=== PATIENT | female | born 1935 | race Caucasian/White ===

== ENCOUNTER 2016-07-22 14:23 | Inpatient (IN) | payer OTHER, MEDICARE ==
[~2016-07-22] VITALS: Ht 158.8 cm; Wt 48.6 kg
[~2016-07-22 14:23] MED LIST: ASPIRIN EC81 M1; ATELVIA PO; BACTROBAN OINT.22 GM TOP; DULOXETINE HCL30 MG PO; ENALAPRIL MALEAT5 M1 PO; GABAPENTIN100 M2 PO; HYDREA500 M1; LASIX40 M1 PO; LEVOTHYROXINE75 MCG PO; LIPITOR20 M2; METOPROLOL TART25 M1 PO; PERCOCET 325 MG1 TA2 PO; TRAMADOL HCL50 M1 PO; TYLENOL EXTRA500 M2 PO; VASOTEC5 MG PO
--- NOTE | 2016-07-22 14:40 | ED UPPER/LOWER EXTREMITY COMPL ---
History of Present Illness General Chief Complaint: Lower Extremity Problems Stated Complaint: BILATERAL LEG SWELLING Source: patient, family Exam Limitations: no limitations Vital Signs & Intake/Output Vital Signs & Intake/Output Vital Signs Date Time Temp Pulse Resp B/P Pulse O2 O2 Flow FiO2 Ox Delivery Rate 07/27 0634 97.9 73 18 108/62 94 Room Air 07/26 2224 98.3 84 20 120/60 93 Room Air 07/26 1835 120/80 07/26 1527 97.7 79 18 100/60 92 07/26 0952 87 106/58 ED Intake and Output 07/27 0000 07/26 1200 Intake Total 620 120 Output Total 1100 100 Balance -480 20 Intake, IV 0 Intake, Oral 620 120 Number 0 0 Bowel Movements Output, Urine 1100 100 Patient 109 lb Weight Allergies Coded Allergies: codeine (Severe, SOB AND CHILLS 07/22/16) Reconcile Medications Acetaminophen (Tylenol Extra Strength) 500 MG TABLET 1 TAB PO BID PAIN ( Reported) Aspirin (Ecotrin) 81 MG ECT 1 TAB PO DAILY HEART (Reported) Atorvastatin Calcium (Lipitor) 20 MG TABLET 1 TAB PO AT BEDTIME CHOLESTEROL ( Reported) Augmentin (Augmentin 500-125 Tablet) 500 MG-125 MG TABLET 500 MG PO Q12 SKIN INFECTION STOP AFTER LAST DOSE ON 07/28/16. Duloxetine HCl 30 MG CAPSULE.DR 1 CAP PO QPM depression (Reported) Furosemide (Lasix) 40 MG TABLET 1 TAB PO DAILY FLUID RETENTION Gabapentin 100 MG CAPSULE 1 TAB PO Q8 PRN ANXIETY/INSOMNIA/PAIN PATIENT CAN GET 300MG ALTOGETHER AT BED TIME NEEDED. Hydroxyurea 500 MG CAPSULE 500 MG PO DAILY THROMB (Reported) Levothyroxine Sodium 75 MCG TABLET 1 TAB PO AD THYROID (Reported) Metoprolol Tartrate 25 MG TABLET 1 TAB PO BID BP (Reported) Risedronate Sodium (Atelvia) 35 MG TABLET.DR 1 TAB PO QWED OSTEOPOROSIS ( Reported) after food with at least 4 ounces of plain water Tramadol HCl 50 MG TABLET 1 TAB PO Q6P PRN PAIN (Reported) Triage Note: TRIAGE: PT TO ER WITH DAUGHTER, SENT TO ER FOR ADMISSION FROM WOUND CARE CENTER. STATES SHE NEEDS INPATIENT TREATMENT FOR WOUNDS ON BLE AND INTRACTABLE PAIN R/T SAME. DAUGHTER STATES THAT ANDREW TOOK A PICTURE OF THE WOUNDS AND WILL SEND THE PICTURE TO ANY MD WHO WANTS TO SEE IT SO THE DRESSINGS CAN STAY ON UNTIL TOMORROW. Triage Nurses Notes Reviewed? yes Onset: Gradual Duration: week(s): (SEVERAL) Timing: recent history Severity: severe Severity Numbers: 10 Pain/Injury Location: Bilateral: Leg. Associated Symptoms: swelling, DRAINAGE HPI: This is a very eusebio 81-year-old female with history of congestive heart failure, chronic lower extremity wounds who presents with her daughter from the wound care center, sent for admission for pain control, leg elevation. According to the daughter who is a nurse her chronic wounds have been getting worse over the last several weeks. There is malodorous discharge. No fevers this week but she had temperature of 100 last week. Positive nausea but no vomiting. She was seen there by Dr. Canada vascular who recommends IV pain control as well as leg elevation to help heal the wounds. Her issue with wounds started 1-1/2 years ago when she used 5-FU cream for a cancerous lesion on her leg. That developed into necrosis which then required bilateral vein closures. She has had issues on and off since then. With previous hospitalization and leg elevation the wounds were able to heal over and close. Patient complains of severe pain in both extremities as well as numbness and tingling. She states that her leg feels like it is "falling asleep. Dr. Uribe, who saw the wounds today, did not feel that they were acutely infected. And takes daily Lasix. 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 While she tries to be compliant with elevation she has a hard time keeping the legs up which has worsened the wounds of the last week. Past History Travel History Traveled to [place] past 21 day No Medical History Any Pertinent Medical History? see below for history Neurological: peripheral neuropathy, BRAIN TUMOR BRAIN CYST EENT: NONE Cardiovascular: hypertension, hyperlipidemia, systolic CHF, EDEMA Respiratory: NONE Gastrointestinal: NONE Hepatic: cholelithiasis Renal: NONE Musculoskeletal: osteoporosis, TORN L ROTATOR CUFF Psychiatric: NONE Endocrine: hypothyroidism Blood Disorders: THROMBOCYTOSIS Cancer(s): breast cancer, +CANCER CELLS TO LEG LAND TITLE EXAMINER/Reproductive: uterine/bladder prolapse History of MRSA: No History of VRE: No History of CDIFF: No Surgical History Surgical History: hysterectomy, lumpectomy, spinal fusion, BRAIN CYST REMOVAL 1996, BILATERAL VEIN CLOSURES 2015 Psychosocial History Who do you live with Patient/Self Services at Home None What is your primary language Faroese Tobacco Use: Quit >30 days ago ETOH Use: denies use Illicit Drug Use: denies illicit drug use Family History Family History, If Any: Relation not specified for: FH: breast cancer Hx Contributory? No Review of Systems Review of Systems Constitutional: Reports: fever (LAST WEEK). Denies: chills. EENTM: Reports: no symptoms. Respiratory: Reports: no symptoms. Cardiovascular: Reports: no symptoms. Gastrointestinal/Abdominal: Reports: nausea. Denies: abdominal pain, vomiting. Genitourinary: Reports: no symptoms. Musculoskeletal: Reports: no symptoms. Skin: Reports: see HPI (OPEN WOUNDS), erythema. Neurological/Psychological: Reports: no symptoms. Hematologic/Endocrine: Denies: bruising, bleeding, polyuria, polydipsia. Immunological: Reports: no symptoms. All Other Systems: Reviewed and Negative Physical Exam Physical Exam General Appearance: alert, awake, anxious, mild distress, thin Head: atraumatic, normal appearance Eyes: Bilateral: normal appearance, PERRL, EOMI. Ears, Nose, Throat: normal pharynx, normal ENT inspection, hearing grossly normal Neck: normal inspection, supple, full range of motion Cardiovascular/Respiratory: normal breath sounds, normal peripheral pulses Peripheral Pulses: 2+ radial (R), 2+ radial (L) Gastrointestinal: SOFT NONTENDER Leg Left: WRAPPED LEGS Leg Right: WRAPPED LEGS Hip Left: normal range of motion, normal inspection Hip Right: normal range of motion, normal inspection Knee Left: normal range of motion, normal inspection Knee Right: normal range of motion, normal inspection Foot Left: SWOLLEN/ERYTHEMATOUS TOES EXPOSED Foot Right: SWOLLEN/ERYTHEMATOUS TOES EXPOSED Skin: intact, normal color, warm/dry Progress Differential Diagnosis: EDEMA, CHRONIC LEG WOUNDS, INTRACTABLE PAIN Plan of Care: Orders Procedure Date/time Status TOTAL IRON BINDING CAPACITY 07/27 0600 Active FERRITIN 07/27 0600 Active SERUM IRON 07/27 0600 Active CBC WITHOUT DIFFERENTIAL 07/27 0600 Complete BASIC ELECTROLYTES PLUS BUN&CR 07/27 0600 Active VITAMIN B12 07/27 0600 Active MISSING MEDICATION FORM 07/27 UNK Active DC OXYGEN 07/26 1600 Complete Hemoccult 07/26 UNK Active Laboratory Tests 07/27/16 0634: Anion Gap 14, Estimated GFR 60, BUN/Creatinine Ratio 15.6, Iron 39, TIBC 303, Ferritin Pending, Vitamin B12 Pending, CBC w Diff NO MAN DIFF REQ, RBC 2.76 L, MCV 100.2 H, MCH 32.0 H, RDW 16.6 H, MPV 6.9 L, Gran % 50.6, Lymphocytes % 30.1, Monocytes % 17.0 H, Eosinophils % 1.6, Basophils % 0.7, Absolute Granulocytes 3.6, Absolute Lymphocytes 2.1, Absolute Monocytes 1.2 H, Absolute Eosinophils 0.1, Absolute Basophils 0, PUBS MCHC 31.9 L 07/26/16 1005: Sodium Cancelled, Potassium Cancelled, Chloride Cancelled, Carbon Dioxide Cancelled, Anion Gap Cancelled, BUN Cancelled, Creatinine Cancelled, BUN/ Creatinine Ratio Cancelled Initial ED EKG: NSR, LAD Prior EKG: unchanged Departure Departure Time of Disposition: 1618 Disposition: STILL A PATIENT Condition: Stable Clinical Impression Primary Impression: Lower extremity edema Secondary Impressions: Intractable pain Referrals: RIANNA BRAUN MD (PCP/Family) Departure Forms: Customer Survey General Discharge Information Prescriptions: Current Visit Scripts Augmentin (Augmentin 500-125 Tablet) 500 MG PO Q12 3 Days STOP AFTER LAST DOSE ON 07/28/16. Admission Note Spoke With: RIANNA BRAUN MD Documentation of Exam: Documentation of any treatments & extenuating circumstances including Concerns Regarding Discharge (functional status, medication knowledge or non-compliance, living conditions, etc.) that warrant an admission rather than observation: [IV PAIN CONTROL, LEG ELEVATION, WOUND CARE CONSULT, ID CONSULT, VASCULAR CONSULT, PT EVALUATION. PATIENT FAILING AT HOME, UNABLE TO PERFORM ADL'S SECONDARY TO INCREASING LEG PAIN/EDEMA. PER VASCULAR WILL REQUIRE STRICT LEG ELEVATION TO HEAL WOUNDS]
[2016-07-22 15:41] LABS: ABSOLUTE BASOPHIL COUNT 0 /CUMM (0.0-0.2); ABSOLUTE EOSINOPHIL COUNT 0 /CUMM (0.0-0.7); ABSOLUTE GRANULOCYTE CT 9.2 /CUMM (1.4-6.5); ABSOLUTE LYMPH COUNT 1.6 /CUMM (1.2-3.4); ABSOLUTE MONOCYTE COUNT 1.1 /CUMM (0.10-0.60); BASOPHIL % 0.3 % (0.0-2.0); EOSINOPHIL % 0.4 % (0-5); GRANULOCYTE % 76.8 % (42.2-75.2); HEMATOCRIT 25.4 % (37-47); MEAN CORPUSCULAR HGB 32.5 PG (27.0-31.0); MEAN CORPUSCULAR HGB CONC 32.8 G/DL (33.0-37.0); MEAN CORPUSCULAR VOLUME 99.3 FL (81.0-99.0); MEAN PLATELET VOLUME 7.1 FL (7.4-10.4); PLATELET COUNT 624 /CUMM (130-400); RBC DISTRIBUTION WIDTH 16.8 % (11.5-14.5); RED BLOOD CELL CT 2.56 /CUMM (4.20-5.40)
[2016-07-22 16:27] VITALS: BP 162/70
--- NOTE | 2016-07-22 16:58 | History & Physical ---
See Addendum HAILY NORWOOD MD 07/22/16 5636: General Information and HPI History of Present Illness: Ms. Bauer is a 81 year old lady with a PMH significant for skin cancer (unknown type) in BLEs, PAD, chronic venous insufficeincy, HTN, HLD, CHF, thrombocytosis, Graves disease, hypothyroidism, brain tumor, depression, and benzo abuse, sent in by Dr. Uribe from wound care center earlier today for worsening bilateral lower extremity edema and pain. Patient has been admitted twice in the past ( October and April 2016) for the recurrent BLE ulcer and edema which she had the diagnosis with skin cancer in both legs followed by valve closure and stent placement. Since being discharged from the last admission, patient's ulcers have been progressively worsening. This morning pain was so severe that she could not walk and almost fell. Currently patient reports severe pain in the medial aspects of both ankles. Pain is burning type, 10 out of 10, not well controlled despite. She denies any paresthesia. ROS grossly negative although patient reports a single episode of fever last week. Denies any chest pain, palpitations , shortness of breath, abdominal pain, nausea, vomiting, diarrhea, constipation, headache, dizziness/lightheadedness. PCP - Dr. Franklin Relationship Specialist - Dr. Biggs Wound care - Dr. Uribe Taping Foreman - Dr. Thomas Full code. Allergies/Medications Allergies: Coded Allergies: codeine (Severe, SOB AND CHILLS 07/22/16) Home Med list Acetaminophen (Tylenol Extra Strength) 500 MG TABLET 1 TAB PO BID PAIN ( Reported) Aspirin (Ecotrin) 81 MG ECT 1 TAB PO DAILY HEART (Reported) Atorvastatin Calcium (Lipitor) 20 MG TABLET 1 TAB PO AT BEDTIME CHOLESTEROL ( Reported) Duloxetine HCl 30 MG CAPSULE.DR 1 CAP PO QPM depression (Reported) Furosemide (Lasix) 40 MG TABLET 1 TAB PO DAILY FLUID RETENTION Gabapentin 100 MG CAPSULE 1 TAB PO Q8 PRN ANXIETY/INSOMNIA/PAIN PATIENT CAN GET 300MG ALTOGETHER AT BED TIME NEEDED. Hydroxyurea 500 MG CAPSULE 500 MG PO DAILY THROMB (Reported) Levothyroxine Sodium 75 MCG TABLET 1 TAB PO AD THYROID (Reported) Metoprolol Tartrate 25 MG TABLET 1 TAB PO BID BP (Reported) Risedronate Sodium (Atelvia) 35 MG TABLET.DR 1 TAB PO QWED OSTEOPOROSIS ( Reported) after food with at least 4 ounces of plain water Tramadol HCl 50 MG TABLET 1 TAB PO Q6P PRN PAIN (Reported) Past History Travel History Traveled to [place] past 21 day No Medical History Neurological: peripheral neuropathy, BRAIN TUMOR BRAIN CYST EENT: NONE Cardiovascular: hypertension, hyperlipidemia, systolic CHF, EDEMA Respiratory: NONE Gastrointestinal: NONE Hepatic: cholelithiasis Renal: NONE Musculoskeletal: osteoporosis, TORN L ROTATOR CUFF Psychiatric: NONE Endocrine: hypothyroidism Blood Disorders: THROMBOCYTOSIS Cancer(s): breast cancer, +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 unknown Power of Facilities Maintenance Supervisor/HCP? unknown Name of POA/HCP: daughter Joanna Functional Ability ADLs Needs Assist: dressing, eating, toileting, bathing. Ambulation: non-ambulatory IADLs Needs Assist: shopping, housework, finances, food prep, telephone, transportation, medication admin. Review of Systems Review of Systems Constitutional: Reports: see HPI. Exam & Diagnostic Data Last 24 Hrs of Vital Signs/I&O Vital Signs Date Time Temp Pulse Resp B/P Pulse O2 O2 Flow FiO2 Ox Delivery Rate 07/22 2153 101.5 07/22 2057 101.5 103 18 167/74 96 Nasal 2.0L Cannula 07/22 162 97.5 82 20 162/70 95 Room Air 07/22 1627 97.5 82 20 162/70 95 Room Air 07/22 1605 Room Air 07/22 1429 98.6 81 20 131/71 95 Room Air Intake & Output 07/22 1600 07/22 0800 07/22 0000 Intake Total Output Total Balance Patient 50.349 kg Weight Physical Exam General Appearance Alert, Oriented X3, Cooperative, No Acute Distress Skin BLEs wrapped with dressings, patient refusing undressing. HEENT Atraumatic, PERRLA, EOMI, Mucous Membr. moist/pink Neck Supple, No JVD, +2 Carotid Pulse wo Bruit, No LAD Cardiovascular Regular Rate, Normal S1, Normal S2, No Murmurs, Gallops, Rubs Lungs Clear to Auscultation, Normal Air Movement Abdomen Normal Bowel Sounds, Soft, No Tenderness Neurological Normal Speech, Sensation Intact, Cranial Nerves 3-12 NL Extremities No Clubbing, No Cyanosis, No Edema, Limited due to dressings Last 24 Hrs of Labs/Everardo: Laboratory Tests 07/22/162124: Lactic Acid 1.9 07/22/162115: Urine Color YEL, Urine Clarity CLEAR, Urine pH 6.0, Ur Specific [place] 1.020, Urine Protein NEG, Urine Ketones NEG, Urine Nitrite NEG, Urine Bilirubin NEG, Urine Urobilinogen 0.2, Ur Leukocyte Esterase NEG, Ur Microscopic EXAM NOT REQUIRED, Urine Hemoglobin NEG, Urine Glucose NEG 07/22/16 151: Lactic Acid 1.6 07/22/161509: Anion Gap 13, Estimated GFR 60, BUN/Creatinine Ratio 22.2, Glucose 98, Calcium 8.9, Total Bilirubin 0.4, AST 23, ALT 26, Alkaline Phosphatase 101, Troponin I < 0.01, Ped-N-Njikfbfyrmo Pept 141 H, Total Protein 7.0, Albumin 3.3 L, Globulin 3.7, Albumin/Globulin Ratio 0.9 L, CBC w Diff NO MAN DIFF REQ, RBC 2.56 L, MCV 99.3 H, MCH 32.5 H, RDW 16.8 H, MPV 7.1 L, Gran % 76.8 H, Lymphocytes % 13.5 L, Monocytes % 9.0, Eosinophils % 0.4, Basophils % 0.3, Absolute Granulocytes 9.2 H, Absolute Lymphocytes 1.6, Absolute Monocytes 1.1 H, Absolute Eosinophils 0, Absolute Basophils 0, PUBS MCHC 32.8 L 07/22/16 1443: Fsh-L-Kbjwkqwskdp Pept Cancelled Microbiology 07/22 2115 URINE ROUT: Urine Culture - RECD 07/22 152 BLOOD: Blood Culture - RECD 07/22 1509 BLOOD: Blood Culture - RECD Assessment/Plan Assessment: Ms. Bauer is a 81 year old lady with a PMH significant for skin cancer (unknown type) in BLEs, PAD, chronic venous insufficeincy, HTN, HLD, CHF, thrombocytosis, Graves disease, hypothyroidism, brain tumor, depression, and benzo abuse, presenting with worsening bilateral lower extremity edema and pain secondary to nonhealing ulcers of BLE. #Nonhealing ulcers of BLE: Has been following [facility] for a long time. Has had extensive venous and arterial testing per vascular surgery. Does not have significant PAD but has had venous disease which has been treated. Per vascular during last admission, patient's leg edema and ulceration was exacerbated by noncompliance with compression therapy and leg elevation. She has previously responded to treatment during hospitalization with improvement of her wounds. * Consult wound care * Continue leg elevation and compression from foot to knee. * Consider vascular consult * Adequate pain control with Morphine 2mg IV Q6P and Ultram 50 mg PO Q6P * Lasix 40mg IV daily * Consult market research senior project manager (Dr. Biggs) given the h/o CHF #Depression: Likely contributing to her noncompliance with therapy. * Continue home med Cybalta 30mg PO qPM * Consider psych consider * Avoid benzodiazepines in the setting of history of benzodiazepine abuse. #HTN: * Continue home med Lopressor 25mg PO BID * Lasix as above #Thrombosis * Continue home med hydroxyurea 500 mg PO QD #HLD * Continue home meds Lipitor 20mg PO qHS and aspirin 81 mg PO QD #Hypothyroidism: History of Grave's disease. * Continue home med levotyroxine 75 mcg PO QD Diet: Heart healthy DVT PPx: Lovenox 40 mg SQ QD CODE: FULL As Ranked By This Provider Problem List: 1. PAD (peripheral artery disease) 2. Anxiety 3. Leg pain, bilateral 4. Lower extremity edema 5. Intractable pain 6. Chronic pain 7. Non-healing ulcer of lower extremity 8. Peripheral vascular disease 9. Hyperlipidemia 10. Depression 11. DVT prophylaxis 12. Full code status 13. Hypothyroid 14. Hypertension Core Measures/Miscellaneous Acute Coronary Syndrome ACS Diagnosis: No Cerebrovascular Accident CVA/TIA Diagnosis: No Congestive Heart Failure CHF Diagnosis: No Venous Thromboembolism VTE Risk Factors: Age > 40 VTE Prophylaxis Ordered Inpt: Pharm- Lovenox No Mech VTE prophylaxis d/t: LE Edema No VTE Pharm Prophylaxis d/t: No contraindications VTE Diagnosis: No VTE Type: NONE VTE Confirmed by (Test): NONE Severe Sepsis Severe Sepsis Present: No Septic Shock Septic Shock Present: No Miscellaneous Documentation Attending Case Discussed With: RIANNA FRANKLIN MD Primary Care Physician: RIANNA FRANKLIN MD Patient sees these Specialists PCP Cardio Wound care Level of Patient Care: General Medicine TERI DUNBAR 07/22/16 1730: Resident Review Statement Resident Statement: examined this patient, discussed with internal control consultant, agreed with internal control consultant, discussed with family Other Findings: Patient is 81 year old female with PMH significant for skin cancer (unknown type ) in BLEs, PAD, chronic venous insufficeincy, HTN, HLD, CHF, thrombocytosis, Graves disease, hypothyroidism, brain tumor, depression, and benzo abuse, sent in by Dr. Uribe from wound care center earlier today for worsening bilateral lower extremity edema and pain. Vitals and labs as above Patient refused to opening of her lower extremety compression stocking Assessment and plan Patient is afebrile, with slight leukocytosis will repeat cbc in am patient reports that her leg wounds were weeping of purulent material in am, she refused to examination, will call wound consult in am Will place cardiology consult in am for heart failure will give her 40 IV lasix now and and repeat daily will continue patients home medication for anxiety, depression etc will continue metoprolol, gabapentin and hydroxyuria ( patient takes for thrombocytosis) DVT ppx sc lovenox Patient is FC
--- NOTE | 2016-07-22 20:41 | Admission Certification ---
Admission Certification Certification Statement - As attending physician, I certify that at the time of - admission, based on clinical presentation, severity of - symptoms, need for further diagnostic testing and - therapeutic interventions, and risk of adverse outcomes - without in-hospital treatment, in my clinical assessment, - this patient requires an acute hospital stay for a minimum - of two nights or longer. I have also considered psychsocial - factors such as support system, advanced age, financial - issues, cognitive issues, and failed out-patient treatments, - past re-admission history, safety of patient, and lack of - compliance as applicable. Specific rationale supporting this admission is: Leg edema leg pain leg ulcers needs IV diuretics pain management wound care and leg elevation.
--- NOTE | 2016-07-22 20:43 | PN- Att Addend ---
Attending Addendum Attending Brief Note 81 year old female with leg edema leg ulcers getting worse plus in a lot of pain follows with vascular and wound center not better worse needs care of legs diuresis leg elevation and pain management. Laboratory Tests 07/22 07/22 07/22 1510 1510 1443 Chemistry Sodium (137 - 145 mmol/L) 136 L Potassium (3.5 - 5.1 mmol/L) 4.7 Chloride (98 - 107 mmol/L) 93 L Carbon Dioxide (22 - 30 mmol/L) 29 Anion Gap (5 - 16) 13 BUN (7 - 17 mg/dL) 20 H Creatinine (0.5 - 1.0 mg/dL) 0.9 Estimated GFR (>60 ml/min) 60 BUN/Creatinine Ratio (7 - 25 %) 22.2 Glucose (65 - 99 mg/dL) 98 Lactic Acid (0.7 - 2.1 mmol/L) 1.6 Calcium (8.4 - 10.2 mg/dL) 8.9 Total Bilirubin (0.2 - 1.3 mg/dL) 0.4 AST (14 - 36 U/L) 23 ALT (9 - 52 U/L) 26 Alkaline Phosphatase (<127 U/L) 101 Troponin I (< 0.11 ng/ml) < 0.01 [id number] Pept (<125 pg/mL) 141 H Cancelled Total Protein (6.3 - 8.2 g/dL) 7.0 Albumin (3.5 - 5.0 g/dL) 3.3 L Globulin (1.9 - 4.2 gm/dL) 3.7 Albumin/Globulin Ratio (1.1 - 2.2 %) 0.9 L Hematology CBC w Diff NO MAN DIFF REQ WBC (4.8 - 10.8 /CUMM) 12.0 H RBC (4.20 - 5.40 /CUMM) 2.56 L Hgb (12.0 - 16.0 G/DL) 8.3 L Hct (37 - 47 %) 25.4 L MCV (81.0 - 99.0 FL) 99.3 H MCH (27.0 - 31.0 PG) 32.5 H RDW (11.5 - 14.5 %) 16.8 H Plt Count (130 - 400 /CUMM) 624 H MPV (7.4 - 10.4 FL) 7.1 L Gran % (42.2 - 75.2 %) 76.8 H Lymphocytes % (20.5 - 51.1 %) 13.5 L Monocytes % (1.7 - 9.3 %) 9.0 Eosinophils % (0 - 5 %) 0.4 Basophils % (0.0 - 2.0 %) 0.3 Absolute Granulocytes (1.4 - 6.5 /CUMM) 9.2 H Absolute Lymphocytes (1.2 - 3.4 /CUMM) 1.6 Absolute Monocytes (0.10 - 0.60 /CUMM) 1.1 H Absolute Eosinophils (0.0 - 0.7 /CUMM) 0 Absolute Basophils (0.0 - 0.2 /CUMM) 0 PUBS MCHC (33.0 - 37.0 G/DL) 32.8 L
--- NOTE | 2016-07-22 22:25 | RADIOLOGY REPORT ---
EXAMINATION: XR PORTABLE CHEST CLINICAL INFORMATION: Shortness of breath and fever. Assess for pneumonia. COMPARISON: Chest x-ray 04/16/2016. TECHNIQUE: An 85 degree semiupright PA portable view of the chest was obtained at 9:30 PM FINDINGS: The patient is rotated to the right. The lung fontaine are hypoexpanded. There is increased opacity at the bases, which may be consistent with bronchovascular crowding. No definite focal consolidation is demonstrated. The left CP angle and left lower lobe is difficult to assess as the patient's right hand overlies these regions. The cardiac silhouette is normal in size. The aortic arch is calcified and unfolded. The central pulmonary vasculature appears normal. There are multiple clips in the left axilla. A plate and 3 levels of screws are noted in the lower cervical spine, consistent with ACDF. IMPRESSION: 1. There are no acute cardiopulmonary findings. 2. The study is suboptimal due to technical factors as described above.
[2016-07-22 23:19] VITALS: BP 113/59
[2016-07-23 06:00] LABS: ABSOLUTE BASOPHIL COUNT 0 /CUMM (0.0-0.2); ABSOLUTE EOSINOPHIL COUNT 0 /CUMM (0.0-0.7); ABSOLUTE GRANULOCYTE CT 9.6 /CUMM (1.4-6.5); ABSOLUTE LYMPH COUNT 1.7 /CUMM (1.2-3.4); ABSOLUTE MONOCYTE COUNT 1.4 /CUMM (0.10-0.60); BASOPHIL % 0.3 % (0.0-2.0); EOSINOPHIL % 0.1 % (0-5); GRANULOCYTE % 75.2 % (42.2-75.2); HEMATOCRIT 28.3 % (37-47); MEAN CORPUSCULAR HGB 32.2 PG (27.0-31.0); MEAN CORPUSCULAR HGB CONC 32.8 G/DL (33.0-37.0); MEAN PLATELET VOLUME 6.9 FL (7.4-10.4); PLATELET COUNT 644 /CUMM (130-400); RBC DISTRIBUTION WIDTH 17.1 % (11.5-14.5); RED BLOOD CELL CT 2.89 /CUMM (4.20-5.40); WHITE BLOOD CELL COUNT 12.7 /CUMM (4.8-10.8)
[2016-07-23 06:07] VITALS: BP 112/56
--- NOTE | 2016-07-23 06:19 | PN- Housestaff ---
Subjective Follow-up For: Nonhealing ulcers in BLEs Subjective: Patient seen and examined at bedside. She was in excruciating pain this morning but pain improved significantly after 0.6mg of IV Dilaudid. No new complaints. Pending wound care's input. Review of Systems Constitutional: Reports: see HPI. Objective Last 24 Hrs of Vital Signs/I&O Vital Signs Date Time Temp Pulse Resp B/P Pulse O2 O2 Flow FiO2 Ox Delivery Rate 07/23 1532 97.8 80 18 120/58 98 07/23 0912 76 135/80 07/23 0724 98.9 84 18 112/56 96 07/23 0607 98.9 84 20 112/56 98 Nasal 2.0L Cannula 07/23 0215 100.0 07/23 0215 100.0 07/23 0116 100.9 07/23 0000 101.4 07/22 2319 101.8 96 18 113/59 96 Nasal 2.0L Cannula 07/22 2253 101.8 07/22 2251 101.8 96 18 113/59 96 Nasal 2.0L Cannula 07/22 2239 Nasal 2.0L Cannula 07/22 2215 101.5 103 18 167/74 07/22 2153 101.5 07/22 2058 101.5 103 18 167/74 96 Nasal 2.0L Cannula 07/22 1627 97.5 82 20 162/70 95 Room Air 07/22 1627 97.5 82 20 162/70 95 Room Air Intake & Output 07/23 1600 07/23 0800 07/23 0000 Intake Total 350 Output Total 600 1900 Balance -250 -1900 Intake, IV 300 Intake, Oral 50 Output, Urine 600 1900 Physical Exam General Appearance: Alert, Oriented X3, Cooperative, Mild Distress Other Physical Findings: Skin BLEs wrapped with dressings, patient refusing undressing. HEENT Atraumatic, PERRLA, EOMI, Mucous Membr. moist/pink Neck Supple, No JVD, +2 Carotid Pulse wo Bruit, No LAD Cardiovascular Regular Rate, Normal S1, Normal S2, Systolic murmur (Grade II) at aortic Lungs Clear to Auscultation, Normal Air Movement Abdomen Normal Bowel Sounds, Soft, No Tenderness Neurological Normal Speech, Sensation Intact, Cranial Nerves 3-12 NL Extremities No Clubbing, No Cyanosis, No Edema, Limited due to dressings Current Medications: Current Medications Sig/Amrita Start time Last Medication Dose Route Stop Time Status Admin Acetaminophen 0 .STK-MED ONE 07/23 0116 DC IV Acetaminophen 1,000 MG ONCE ONE 07/23 0030 DC 07/23 N/A 1 UNIT IV 07/23 0044 0116 Acetaminophen 0 .STK-MED ONE 07/22 2151 DC CA Acetaminophen 650 MG ONCE ONE 07/22 2145 DC 07/22 CA 07/22 2145 215 Acetaminophen 0 .STK-MED ONE 07/223 DC PO Aspirin 81 MG DAILY 07/23 1000 AC 07/23 PO 0912 Atorvastatin Calcium 20 MG AT BEDTIME 07/22 2200 AC PO Dextrose/Sodium 1,000 ML Q13H 07/23 0100 DC 07/23 Chloride IV 07/23 1359 0126 Duloxetine HCl 30 MG QPM 07/22 2200 AC PO Enoxaparin Sodium 40 MG DAILY 07/23 1000 AC 07/23 SC 0912 Furosemide 40 MG DAILY 07/23 1000 CAN IV Furosemide 0 .STK-MED ONE 07/23 0613 DC IV Furosemide 0 .STK-MED ONE 07/22 2024 DC IV Furosemide 40 MG ONCE ONE 07/22 1745 DC 07/22 IV 07/22 1746 1845 Gabapentin 100 MG Q8 PRN 07/22 1815 AC PO Hydromorphone HCl 0 .STK-MED ONE 07/23 0918 DC .ROUTE Hydromorphone HCl 0.6 MG ONCE ONE 07/23 0830 DC 07/23 IV 07/23 0831 0912 Hydromorphone HCl 1 MG ONCE ONE 07/22 1815 DC 07/22 IV 07/22 1816 1812 Hydromorphone HCl 0 .STK-MED ONE 07/22 1806 DC .ROUTE Hydroxyurea 500 MG DAILY 07/22 1811 AC 07/23 PO 0912 Levothyroxine Sodium 0.075 MG DAILY AC 07/23 0700 AC 07/23 PO 0641 Metoprolol Tartrate 25 MG BID 07/22 2200 AC 07/23 PO 0912 Morphine Sulfate 2 MG Q6P PRN 07/22 1900 AC 07/23 IV 1533 Morphine Sulfate 2 MG ONCE ONE 07/22 1630 DC 07/22 IV 07/22 1631 1631 Morphine Sulfate 0 .STK-MED ONE 07/22 1630 DC .ROUTE Tramadol HCl 0 .STK-MED ONE 07/23 0735 DC PO Tramadol HCl 50 MG Q6P PRN 07/22 1815 AC 07/23 PO 0835 Vancomycin HCl 1,000 MG DAILY 07/22 2229 07/23 Dextrose/Water 250 ML IV 0912 Last 24 Hrs of Lab/Everardo Results Last 24 Hrs of Labs/Mics: Laboratory Tests 07/23/16 0527: Lactic Acid 1.6, CBC w Diff NO MAN DIFF REQ, RBC 2.89 L, MCV 98.0, MCH 32.2 H, RDW 17.1 H, MPV 6.9 L, Gran % 75.2, Lymphocytes % 13.6 L, Monocytes % 10.8 H , Eosinophils % 0.1, Basophils % 0.3, Absolute Granulocytes 9.6 H, Absolute Lymphocytes 1.7, Absolute Monocytes 1.4 H, Absolute Eosinophils 0, Absolute Basophils 0, PUBS MCHC 32.8 L 07/23/16 0125: Lactic Acid 1.3 07/22/162124: Lactic Acid 1.9 07/22/162115: Urine Color YEL, Urine Clarity CLEAR, Urine pH 6.0, Ur Specific [place] 1.020, Urine Protein NEG, Urine Ketones NEG, Urine Nitrite NEG, Urine Bilirubin NEG, Urine Urobilinogen 0.2, Ur Leukocyte Esterase NEG, Ur Microscopic EXAM NOT REQUIRED, Urine Hemoglobin NEG, Urine Glucose NEG Microbiology 07/22 2115 URINE ROUT: Urine Culture - RES Assessment/Plan Assessment: Ms. Bauer is a 81 year old lady with a PMH significant for skin cancer (unknown type) in BLEs, PAD, chronic venous insufficeincy, HTN, HLD, CHF, thrombocytosis, Graves disease, hypothyroidism, brain tumor, depression, and benzo abuse, presenting with worsening bilateral lower extremity edema and pain secondary to nonhealing ulcers of BLE. #Nonhealing ulcers of BLE: [facility]. Has had extensive venous and arterial testing per vascular surgery. Does not have significant PAD but has had venous disease which has been treated. Per vascular during last admission, patient's leg edema and ulceration was exacerbated by noncompliance with compression therapy and leg elevation. She has previously responded to treatment during hospitalization with improvement of her wounds. * Wound care consulted, follow recs * Continue leg elevation and compression from foot to knee. * Vascular consulted, follow recs * Continue local wound care with Adaptic, Aquacel and Kerlix and Kelton daily; avoid Xeroform as per vascular rec. * Adequate pain control with Morphine 2mg IV Q6P and Ultram 50 mg PO Q6P * May give 0.4-0.6mg IV Dilaudid one time dose for excruciating pain * Cont Lasix 40mg IV daily * Store Protection Specialist (Dr. Biggs) consulted, follow recs #Depression: Likely contributing to her noncompliance with therapy. * Continue home med Cybalta 30mg PO qPM * Consider psych consider * Avoid benzodiazepines in the setting of history of benzodiazepine abuse. #HTN: * Continue home med Lopressor 25mg PO BID * Lasix as above #Thrombosis * Continue home med hydroxyurea 500 mg PO QD #HLD * Continue home meds Lipitor 20mg PO qHS and aspirin 81 mg PO QD #Hypothyroidism: History of Grave's disease. * Continue home med levotyroxine 75 mcg PO QD Diet: Heart healthy DVT PPx: Lovenox 40 mg SQ QD CODE: FULL Problem List: 1. Non-healing ulcer of lower extremity 2. PAD (peripheral artery disease) 3. Aortic stenosis, mild 4. Anxiety 5. Intractable pain 6. Lower extremity edema Pain Ratin Pain Location: BLEs Pain Goal: Pain 4 or less Pain Plan: Moderate pathway Tomorrow's Labs & Rationales: CBC to monitor for infection (leukocytosis)
--- NOTE | 2016-07-23 09:46 | Cons- Vascular Surgery ---
General Information and HPI Consulting Request Date of Consult: 07/22/16 Requested By: RIANNA BRAUN MD Reason for Consult: Bilateral lower extremity edema and excoriated skin Source of Information: patient, family Exam Limitations: no limitations History of Present Illness: 81-year-old female with significant past medical history who presented to the wound Center today with bilateral lower extremity edema and extensive excoriation of the foot. This has been ongoing and increasing in severity and duration. This has occurred in the past. Patient spends long hours sitting in a chair at home and sleeps in the chair. This resulted in extensive dependent edema which breaks down her skin. Her daughter Joanna has been helpful but the patient continues to be noncompliant. When she is admitted to the hospital she elevates her legs and her wounds heal. This has occurred on several occasions. She now presents to the wound Center and [place] with worsening pain and dependent edema. She denies claudication or rest pain. She previously has had an angiogram which revealed no significant PAD. Allergies/Medications Allergies: Coded Allergies: codeine (Severe, SOB AND CHILLS 07/22/16) Home Med List: Acetaminophen (Tylenol Extra Strength) 500 MG TABLET 1 TAB PO BID PAIN ( Reported) Aspirin (Ecotrin) 81 MG ECT 1 TAB PO DAILY HEART (Reported) Atorvastatin Calcium (Lipitor) 20 MG TABLET 1 TAB PO AT BEDTIME CHOLESTEROL ( Reported) Duloxetine HCl 30 MG CAPSULE.DR 1 CAP PO QPM depression (Reported) Furosemide (Lasix) 40 MG TABLET 1 TAB PO DAILY FLUID RETENTION Gabapentin 100 MG CAPSULE 1 TAB PO Q8 PRN ANXIETY/INSOMNIA/PAIN PATIENT CAN GET 300MG ALTOGETHER AT BED TIME NEEDED. Hydroxyurea 500 MG CAPSULE 500 MG PO DAILY THROMB (Reported) Levothyroxine Sodium 75 MCG TABLET 1 TAB PO AD THYROID (Reported) Metoprolol Tartrate 25 MG TABLET 1 TAB PO BID BP (Reported) Risedronate Sodium (Atelvia) 35 MG TABLET.DR 1 TAB PO QWED OSTEOPOROSIS ( Reported) after food with at least 4 ounces of plain water Tramadol HCl 50 MG TABLET 1 TAB PO Q6P PRN PAIN (Reported) Current Medications: Current Medications Sig/Amrita Start time Last Medication Dose Route Stop Time Status Admin Acetaminophen 0 .STK-MED ONE 07/23 115 DC IV Acetaminophen 1,000 MG ONCE ONE 07/23 0030 DC 07/23 N/A 1 UNIT IV 07/23 0044 0116 Acetaminophen 0 .STK-MED ONE 07/22 2151 DC DC Acetaminophen 650 MG ONCE ONE 07/22 2145 DC 07/22 DC 07/22 2145 215 Acetaminophen 0 .STK-MED ONE 07/223 DC PO Aspirin 81 MG DAILY 07/23 1000 AC 07/23 PO 0912 Atorvastatin Calcium 20 MG AT BEDTIME 07/22 2200 AC PO Dextrose/Sodium 1,000 ML Q13H 07/23 0100 AC 07/23 Chloride IV 07/23 1359 0126 Duloxetine HCl 30 MG QPM 07/22 2200 AC PO Enoxaparin Sodium 40 MG DAILY 07/23 1000 AC 07/23 SC 0912 Furosemide 40 MG DAILY 07/23 1000 CAN IV Furosemide 0 .STK-MED ONE 07/23 0613 DC IV Furosemide 0 .STK-MED ONE 07/22 2024 DC IV Furosemide 40 MG ONCE ONE 07/22 1745 DC 07/22 IV 07/22 1746 1845 Gabapentin 100 MG Q8 PRN 07/22 1815 AC PO Hydromorphone HCl 0 .STK-MED ONE 07/23 0918 DC .ROUTE Hydromorphone HCl 0.6 MG ONCE ONE 07/23 0830 DC 07/23 IV 07/23 0831 0912 Hydromorphone HCl 1 MG ONCE ONE 07/22 1815 DC 07/22 IV 07/22 1816 1812 Hydromorphone HCl 0 .STK-MED ONE 07/22 1806 DC .ROUTE Hydroxyurea 500 MG DAILY 07/22 1811 AC 07/23 PO 0912 Levothyroxine Sodium 0.075 MG DAILY AC 07/23 0700 AC 07/23 PO 0641 Metoprolol Tartrate 25 MG BID 07/22 2200 AC 07/23 PO 0912 Morphine Sulfate 2 MG Q6P PRN 07/22 1900 AC IV Morphine Sulfate 2 MG ONCE ONE 07/22 1630 DC 07/22 IV 07/22 1631 1631 Morphine Sulfate 0 .STK-MED ONE 07/22 1630 DC .ROUTE Morphine Sulfate 0 .STK-MED ONE 07/22 1511 DC .ROUTE Morphine Sulfate 2 MG ONCE ONE 07/22 1445 DC 07/22 IV 07/22 1446 1515 Ondansetron HCl 0 .STK-MED ONE 07/22 1512 DC .ROUTE Ondansetron HCl 4 MG ONCE ONE 07/22 1445 DC 07/22 IV 07/22 1446 1515 Tramadol HCl 0 .STK-MED ONE 07/23 0835 DC PO Tramadol HCl 50 MG Q6P PRN 07/22 1815 AC 07/23 PO 0835 Vancomycin HCl 1,000 MG DAILY 07/22 2230 AC 07/23 Dextrose/Water 250 ML IV 0912 Past History Medical History Neurological: peripheral neuropathy, BRAIN TUMOR BRAIN CYST EENT: NONE Cardiovascular: hypertension, hyperlipidemia, systolic CHF, EDEMA Respiratory: NONE Gastrointestinal: NONE Hepatic: cholelithiasis Renal: NONE Musculoskeletal: osteoporosis, TORN L ROTATOR CUFF Psychiatric: NONE Endocrine: hypothyroidism Blood Disorders: THROMBOCYTOSIS Cancer(s): breast cancer, +CANCER CELLS TO LEG METAL FLOW COORDINATOR/Reproductive: uterine/bladder prolapse Surgical History Pertinent Surgical History: hysterectomy, lumpectomy, spinal fusion, BRAIN CYST REMOVAL 1997 BILATERAL VEIN CLOSURES 2015 Family History Relations & Conditions If Any: Relation not specified for: FH: breast cancer Psychosocial History Services at Home: None Primary Language: Wolof Smoking Status: Never Smoked ETOH Use: denies use Illicit Drug Use: denies illicit drug use Living Will? unknown Power of Training Associate/HCP? unknown Name of POA/HCP: daughter Joanna Functional Ability ADLs Needs Assist: dressing, eating, toileting, bathing. Ambulation: non-ambulatory IADLs Needs Assist: shopping, housework, finances, food prep, telephone, transportation, medication admin. Review of Systems Review of Systems: Complains of bilateral lower extremity pain and edema. Complains of burning in the lower extremity. Exam & Diagnostic Data Vital Signs and I&O Vital Signs Date Time Temp Pulse Resp B/P Pulse O2 O2 Flow FiO2 Ox Delivery Rate 07/23 09 76 135/80 07/23 0724 98.9 84 18 112/56 96 07/23 0607 98.9 84 20 112/56 98 Nasal 2.0L Cannula 07/23 0215 100.0 07/23 0215 100.0 07/23 0116 100.9 07/23 0000 101.4 07/22 2319 101.8 96 18 113/59 96 Nasal 2.0L Cannula 07/22 2252 101.8 07/22 225 101.8 96 18 113/59 96 Nasal 2.0L Cannula 07/22 2238 Nasal 2.0L Cannula 07/22 2215 101.5 103 18 167/74 07/22 2153 101.5 07/22 2057 101.5 103 18 167/74 96 Nasal 2.0L Cannula 07/22 1627 97.5 82 20 162/70 95 Room Air 07/22 1627 97.5 82 20 162/70 95 Room Air 07/22 1605 Room Air 07/22 1429 98.6 81 20 131/71 95 Room Air Intake & Output 07/23 1600 07/23 0800 07/23 0000 07/22 1600 07/22 0807/22 0000 Intake Total Output Total 1900 Balance -1900 Output, Urine 1900 Patient 111 lb Weight Physical Exam: Physical exam reveals bilateral lower extremities are perfused with good cap refill. Lower leg with excoriated skin worse at the toe level. Heavy fibrinous exudate. Weeping skin. Assessment/Plan Assessment/Plan 81-year-old female with venous insufficiency and multiple medical problems. 1.) Would recommend elevation and compression- this typically heal these wounds 2.) DVT prophylaxis 3.) Continue local wound care with Adaptic, Aquacel and Kerlix and Kelton daily 4.) Xeroform should not be used as the wounds are already moist 5.) Diuretics as needed and per primary care Consult Acknowledgment - Thank you for your consult request.
--- NOTE | 2016-07-23 12:56 | Cons- Cardiology ---
General Information and HPI Consulting Request Date of Consult: 07/23/16 Requested By: RIANNA BRAUN MD Reason for Consult: Lower extremity edema with nonhealing ulcers Source of Information: patient, old records History of Present Illness: The patient is an 81-year-old female who is well-known to me. Her past history is remarkable for hypertension, hyperlipidemia, lower extremity edema related to venous insufficiency, thrombocytosis, nonhealing lower extremity ulcers, hypothyroidism, etc. The patient was apparently sent to the emergency room from the wound care center by Dr. Uribe for worsening lower extremity edema and discomfort with nonhealing ulcers. The patient has been going to the wound care center and also the heart failure clinic for intermittent IV Lasix. Her last several visits to the CHF clinic have shown that her weight has been stable. The patient has been complaining of worsening lower extremity discomfort. She is quite despondent about the lower extremity issues. Allergies/Medications Allergies: Coded Allergies: codeine (Severe, SOB AND CHILLS 07/22/16) Home Med List: Acetaminophen (Tylenol Extra Strength) 500 MG TABLET 1 TAB PO BID PAIN ( Reported) Aspirin (Ecotrin) 81 MG ECT 1 TAB PO DAILY HEART (Reported) Atorvastatin Calcium (Lipitor) 20 MG TABLET 1 TAB PO AT BEDTIME CHOLESTEROL ( Reported) Duloxetine HCl 30 MG CAPSULE.DR 1 CAP PO QPM depression (Reported) Furosemide (Lasix) 40 MG TABLET 1 TAB PO DAILY FLUID RETENTION Gabapentin 100 MG CAPSULE 1 TAB PO Q8 PRN ANXIETY/INSOMNIA/PAIN PATIENT CAN GET 300MG ALTOGETHER AT BED TIME NEEDED. Hydroxyurea 500 MG CAPSULE 500 MG PO DAILY THROMB (Reported) Levothyroxine Sodium 75 MCG TABLET 1 TAB PO AD THYROID (Reported) Metoprolol Tartrate 25 MG TABLET 1 TAB PO BID BP (Reported) Risedronate Sodium (Atelvia) 35 MG TABLET.DR 1 TAB PO QWED OSTEOPOROSIS ( Reported) after food with at least 4 ounces of plain water Tramadol HCl 50 MG TABLET 1 TAB PO Q6P PRN PAIN (Reported) Current Medications: Current Medications Sig/Amrita Start time Last Medication Dose Route Stop Time Status Admin Acetaminophen 0 .STK-MED ONE 07/236 DC IV Acetaminophen 1,000 MG ONCE ONE 07/23 0030 DC 07/23 N/A 1 UNIT IV 07/236 Acetaminophen 0 .STK-MED ONE 07/22 2151 DC OH Acetaminophen 650 MG ONCE ONE 07/22 2145 DC 07/22 OH 07/22 2146 2153 Acetaminophen 0 .STK-MED ONE 07/22 2123 DC PO Aspirin 81 MG DAILY 07/23 1000 AC 07/23 PO 0912 Atorvastatin Calcium 20 MG AT BEDTIME 07/22 2200 AC PO Dextrose/Sodium 1,000 ML Q13H 07/23 0100 AC 07/23 Chloride IV 07/23 1359 0126 Duloxetine HCl 30 MG QPM 07/22 220 AC PO Enoxaparin Sodium 40 MG DAILY 07/23 1000 AC 07/23 SC 0912 Furosemide 40 MG DAILY 07/23 1000 CAN IV Furosemide 0 .STK-MED ONE 07/23 0613 DC IV Furosemide 0 .STK-MED ONE 07/22 2024 DC IV Furosemide 40 MG ONCE ONE 07/22 1745 DC 07/22 IV 07/22 1746 1845 Gabapentin 100 MG Q8 PRN 07/22 1815 AC PO Hydromorphone HCl 0 .STK-MED ONE 07/23 0918 DC .ROUTE Hydromorphone HCl 0.6 MG ONCE ONE 07/23 0830 DC 07/23 IV 07/23 0831 0912 Hydromorphone HCl 1 MG ONCE ONE 07/22 1815 DC 07/22 IV 07/22 1816 1812 Hydromorphone HCl 0 .STK-MED ONE 07/22 1806 DC .ROUTE Hydroxyurea 500 MG DAILY 07/22 1811 AC 07/23 PO 0912 Levothyroxine Sodium 0.075 MG DAILY AC 07/23 0700 AC 07/23 PO 0641 Metoprolol Tartrate 25 MG BID 07/22 2200 AC 07/23 PO 0912 Morphine Sulfate 2 MG Q6P PRN 07/22 1900 AC IV Morphine Sulfate 2 MG ONCE ONE 07/22 1630 DC 07/22 IV 07/22 1631 1631 Morphine Sulfate 0 .STK-MED ONE 07/22 1630 DC .ROUTE Morphine Sulfate 0 .STK-MED ONE 07/22 1511 DC .ROUTE Morphine Sulfate 2 MG ONCE ONE 07/22 1445 DC 07/22 IV 07/22 1446 1515 Ondansetron HCl 0 .STK-MED ONE 07/22 1512 DC .ROUTE Ondansetron HCl 4 MG ONCE ONE 07/22 1445 DC 07/22 IV 07/22 1446 1515 Tramadol HCl 0 .STK-MED ONE 07/23 0835 DC PO Tramadol HCl 50 MG Q6P PRN 07/22 1815 AC 07/23 PO 0835 Vancomycin HCl 1,000 MG DAILY 07/22 2230 AC 07/23 Dextrose/Water 250 ML IV 0912 Past History Travel History Traveled to [place] past 21 day No Medical History Neurological: peripheral neuropathy, BRAIN TUMOR BRAIN CYST EENT: NONE Cardiovascular: hypertension, hyperlipidemia, systolic CHF, EDEMA Respiratory: NONE Gastrointestinal: NONE Hepatic: cholelithiasis Renal: NONE Musculoskeletal: osteoporosis, TORN L ROTATOR CUFF Psychiatric: NONE Endocrine: hypothyroidism Blood Disorders: THROMBOCYTOSIS Cancer(s): breast cancer, +CANCER CELLS TO LEG SPECIAL EDUCATION AIDE/Reproductive: uterine/bladder prolapse Surgical History Surgical History: hysterectomy, lumpectomy, spinal fusion, BRAIN CYST REMOVAL 1997 BILATERAL VEIN CLOSURES 2015 Family History Relations & Conditions If Any: Relation not specified for: FH: breast cancer Psychosocial History Services at Home: None Primary Language: Nepali Smoking Status: Never Smoked ETOH Use: denies use Illicit Drug Use: denies illicit drug use Living Will? unknown Power of Industrial Sales Engineer/HCP? unknown Name of POA/HCP: daughter Joanna Functional Ability ADLs Needs Assist: dressing, eating, toileting, bathing. Ambulation: non-ambulatory IADLs Needs Assist: shopping, housework, finances, food prep, telephone, transportation, medication admin. Exam & Diagnostic Data Vital Signs and I&O Vital Signs Date Time Temp Pulse Resp B/P Pulse O2 O2 Flow FiO2 Ox Delivery Rate 07/23 0912 76 135/80 07/23 0724 98.9 84 18 112/56 96 07/23 0607 98.9 84 20 112/56 98 Nasal 2.0L Cannula 07/23 0215 100.0 07/23 0215 100.0 07/23 0116 100.9 07/23 0000 101.4 07/22 2319 101.8 96 18 113/59 96 Nasal 2.0L Cannula 07/22 2252 101.8 07/22 2250 101.8 96 18 113/59 96 Nasal 2.0L Cannula 07/22 2238 Nasal 2.0L Cannula 07/22 2214 101.5 103 18 167/74 07/22 2152 101.5 07/22 2057 101.5 103 18 167/74 96 Nasal 2.0L Cannula 07/22 1627 97.5 82 20 162/70 95 Room Air 07/22 1627 97.5 82 20 162/70 95 Room Air 07/22 1605 Room Air 07/22 1429 98.6 81 20 131/71 95 Room Air Intake & Output 07/23 1600 07/23 0800 07/23 0000 07/22 1600 07/22 0800 07/22 0000 Intake Total 300 Output Total 1900 Balance 300 -1900 Intake, IV 300 Output, Urine 1900 Patient 111 lb Weight Physical Exam: General Appearance Alert, Oriented X3, Cooperative, No Acute Distress Skin BLEs wrapped with dressings HEENT Atraumatic, PERRLA, EOMI, Mucous Membr. moist/pink Neck Supple, No JVD, +2 Carotid Pulse wo Bruit Cardiovascular Regular Rate, Normal S1, Normal S2, 1 to 2/6 systolic murmur left sternal border Lungs Clear to Auscultation and percussion bilaterally Abdomen Normal Bowel Sounds, Soft, No Tenderness Neurological Normal Speech, Sensation Intact, Cranial Nerves 3-12 NL Extremities No Clubbing, No Cyanosis, mild edema greater on the right side, examination Limited due to dressings in place Labs/Everardo Results: Laboratory Tests 07/23 07/23 07/22 0527 0125 2125 Chemistry Lactic Acid (0.7 - 2.1 mmol/L) 1.6 1.3 1.9 Hematology CBC w Diff NO MAN DIFF REQ WBC (4.8 - 10.8 /CUMM) 12.7 H RBC (4.20 - 5.40 /CUMM) 2.89 L Hgb (12.0 - 16.0 G/DL) 9.3 L Hct (37 - 47 %) 28.3 L MCV (81.0 - 99.0 FL) 98.0 MCH (27.0 - 31.0 PG) 32.2 H RDW (11.5 - 14.5 %) 17.1 H Plt Count (130 - 400 /CUMM) 644 H MPV (7.4 - 10.4 FL) 6.9 L Gran % (42.2 - 75.2 %) 75.2 Lymphocytes % (20.5 - 51.1 %) 13.6 L Monocytes % (1.7 - 9.3 %) 10.8 H Eosinophils % (0 - 5 %) 0.1 Basophils % (0.0 - 2.0 %) 0.3 Absolute Granulocytes (1.4 - 6.5 /CUMM) 9.6 H Absolute Lymphocytes (1.2 - 3.4 /CUMM) 1.7 Absolute Monocytes (0.10 - 0.60 /CUMM) 1.4 H Absolute Eosinophils (0.0 - 0.7 /CUMM) 0 Absolute Basophils (0.0 - 0.2 /CUMM) 0 PUBS MCHC (33.0 - 37.0 G/DL) 32.8 L 07/22 07/22 2116 1510 Chemistry Lactic Acid (0.7 - 2.1 mmol/L) 1.6 Urines Urine Color (YEL,AMB,STR) YEL Urine Clarity (CLEAR) CLEAR Urine pH (5.0 - 8.0) 6.0 Ur Specific [place] (1.001 - 1.035) 1.020 Urine Protein (NEG,<30 MG/DL) NEG Urine Ketones (NEG) NEG Urine Nitrite (NEG) NEG Urine Bilirubin (NEG) NEG Urine Urobilinogen (0.1 - 1.0 EU/dl) 0.2 Ur Leukocyte Esterase (NEG) NEG Ur Microscopic EXAM NOT REQUIRED Urine Hemoglobin (NEG) NEG Urine Glucose (N MG/DL) NEG 07/22 07/22 1510 1443 Chemistry Sodium (137 - 145 mmol/L) 136 L Potassium (3.5 - 5.1 mmol/L) 4.7 Chloride (98 - 107 mmol/L) 93 L Carbon Dioxide (22 - 30 mmol/L) 29 Anion Gap (5 - 16) 13 BUN (7 - 17 mg/dL) 20 H Creatinine (0.5 - 1.0 mg/dL) 0.9 Estimated GFR (>60 ml/min) 60 BUN/Creatinine Ratio (7 - 25 %) 22.2 Glucose (65 - 99 mg/dL) 98 Calcium (8.4 - 10.2 mg/dL) 8.9 Total Bilirubin (0.2 - 1.3 mg/dL) 0.4 AST (14 - 36 U/L) 23 ALT (9 - 52 U/L) 26 Alkaline Phosphatase (<127 U/L) 101 Troponin I (< 0.11 ng/ml) < 0.01 [id number] Pept (<125 pg/mL) 141 H Cancelled Total Protein (6.3 - 8.2 g/dL) 7.0 Albumin (3.5 - 5.0 g/dL) 3.3 L Globulin (1.9 - 4.2 gm/dL) 3.7 Albumin/Globulin Ratio (1.1 - 2.2 %) 0.9 L Hematology CBC w Diff NO MAN DIFF REQ WBC (4.8 - 10.8 /CUMM) 12.0 H RBC (4.20 - 5.40 /CUMM) 2.56 L Hgb (12.0 - 16.0 G/DL) 8.3 L Hct (37 - 47 %) 25.4 L MCV (81.0 - 99.0 FL) 99.3 H MCH (27.0 - 31.0 PG) 32.5 H RDW (11.5 - 14.5 %) 16.8 H Plt Count (130 - 400 /CUMM) 624 H MPV (7.4 - 10.4 FL) 7.1 L Gran % (42.2 - 75.2 %) 76.8 H Lymphocytes % (20.5 - 51.1 %) 13.5 L Monocytes % (1.7 - 9.3 %) 9.0 Eosinophils % (0 - 5 %) 0.4 Basophils % (0.0 - 2.0 %) 0.3 Absolute Granulocytes (1.4 - 6.5 /CUMM) 9.2 H Absolute Lymphocytes (1.2 - 3.4 /CUMM) 1.6 Absolute Monocytes (0.10 - 0.60 /CUMM) 1.1 H Absolute Eosinophils (0.0 - 0.7 /CUMM) 0 Absolute Basophils (0.0 - 0.2 /CUMM) 0 PUBS MCHC (33.0 - 37.0 G/DL) 32.8 L Assessment/Plan Assessment/Plan Assessment: 1. Lower extremity edema related to venous insufficiency with nonhealing ulcers. 2. Chronic venous insufficiency, status post venous closure procedures 3. Chronic pain syndrome 4. Nonobstructive peripheral arterial disease-the patient had bilateral lower extremity arterial angiography performed in December 2015 which showed no focal obstructive arterial disease which would require intervention. 5. Hyperlipidemia 6. Hypertension 7. Hypothyroidism Recommendations: -Continue current medications -IV Lasix diuresis with once daily IV Lasix while in the hospital. Continue to monitor her intakes, outputs, and daily weights. -Follow-up labs in 24 hours -Vascular surgery/podiatry input as needed. -Continue conservative measures such as leg elevation, etc. -Full cultures pending Consult Acknowledgment - Thank you for your consult request.
[2016-07-23 15:32] VITALS: BP 120/58
--- NOTE | 2016-07-23 17:32 | PN- Att Addend ---
Attending Addendum Attending Brief Note Patient in bed legs a little elevated still in pain and low-grade fever overnight a febrile today appreciate cardiology's and vascular inputs and recommendations will continue IV Lasix while in the hospital check intake and output continue elevation of those legs pain management wound care and follow-up labs while in the diuretics IV Current Medications Sig/Amrita Start time Last Medication Dose Route Stop Time Status Admin Acetaminophen 0 .STK-MED ONE 07/23 0116 DC IV Acetaminophen 1,000 MG ONCE ONE 07/23 0030 DC 07/23 N/A 1 UNIT IV 07/23 0044 0116 Acetaminophen 0 .STK-MED ONE 07/22 2151 DC CA Acetaminophen 650 MG ONCE ONE 07/22 2145 DC 07/22 CA 07/22 Acetaminophen 0 .STK-MED ONE 07/22 2122 DC PO Aspirin 81 MG DAILY 07/23 1000 AC 07/23 PO 0912 Atorvastatin Calcium 20 MG AT BEDTIME 07/22 2200 AC PO Dextrose/Sodium 1,000 ML Q13H 07/23 0100 DC 07/23 Chloride IV 07/23 1359 0126 Duloxetine HCl 30 MG QPM 07/22 2200 AC PO Enoxaparin Sodium 40 MG DAILY 07/23 1000 AC 07/23 SC 0912 Furosemide 40 MG DAILY 07/23 1000 CAN IV Furosemide 0 .STK-MED ONE 07/23 0613 DC IV Furosemide 0 .STK-MED ONE 07/22 2023 DC IV Furosemide 40 MG ONCE ONE 07/22 1745 DC 07/22 IV 07/22 1746 1845 Gabapentin 100 MG Q8 PRN 07/22 181 AC PO Hydromorphone HCl 0 .STK-MED ONE 07/23 0918 DC .ROUTE Hydromorphone HCl 0.6 MG ONCE ONE 07/23 0830 DC 07/23 IV 07/23 0831 0912 Hydromorphone HCl 1 MG ONCE ONE 07/22 1815 DC 07/22 IV 07/22 1816 1812 Hydromorphone HCl 0 .STK-MED ONE 07/22 180 DC .ROUTE Hydroxyurea 500 MG DAILY 07/22 1811 AC 07/23 PO 0912 Levothyroxine Sodium 0.075 MG DAILY AC 07/23 0700 AC 07/23 PO 0641 Metoprolol Tartrate 25 MG BID 07/22 2200 AC 07/23 PO 0912 Morphine Sulfate 2 MG Q6P PRN 07/22 1900 AC 07/23 IV 1533 Tramadol HCl 0 .STK-MED ONE 07/23 0835 DC PO Tramadol HCl 50 MG Q6P PRN 07/22 1815 AC 07/23 PO 0835 Vancomycin HCl 1,000 MG DAILY 07/22 2230 07/23 Dextrose/Water 250 ML IV 0912 Laboratory Tests 07/23/16 0527: Lactic Acid 1.6, CBC w Diff NO MAN DIFF REQ, RBC 2.89 L, MCV 98.0, MCH 32.2 H, RDW 17.1 H, MPV 6.9 L, Gran % 75.2, Lymphocytes % 13.6 L, Monocytes % 10.8 H , Eosinophils % 0.1, Basophils % 0.3, Absolute Granulocytes 9.6 H, Absolute Lymphocytes 1.7, Absolute Monocytes 1.4 H, Absolute Eosinophils 0, Absolute Basophils 0, PUBS MCHC 32.8 L 07/23/16 0125: Lactic Acid 1.3 07/22/162124: Lactic Acid 1.9 07/22/162115: Urine Color YEL, Urine Clarity CLEAR, Urine pH 6.0, Ur Specific [place] 1.020, Urine Protein NEG, Urine Ketones NEG, Urine Nitrite NEG, Urine Bilirubin NEG, Urine Urobilinogen 0.2, Ur Leukocyte Esterase NEG, Ur Microscopic EXAM NOT REQUIRED, Urine Hemoglobin NEG, Urine Glucose NEG Microbiology Date/Time Procedure - Status Source Growth 07/22 2115 Urine Culture - RES URINE ROUT Vital Signs Date Time Temp Pulse Resp B/P Pulse O2 O2 Flow FiO2 Ox Delivery Rate 07/23 1532 97.8 80 18 120/58 98 Intake & Output 07/23 1600 Intake Total 350 Output Total 600 Balance -250 Intake, IV 300 Intake, Oral 50 Output, Urine 600
--- NOTE | 2016-07-23 19:18 | Event Note ---
Event Note Event Note: Requested by the nursing staff to code status for the patient Radha Bauer. Patient clearly expressed her wish for the code status to be DNR & DNI. Patient stated that this wish has already been clearly conveyed to her daughter/POA. It was clear that patient had a full insight/judgement and capacity.
[2016-07-23 22:24] VITALS: BP 130/70
[2016-07-24 06:15] VITALS: BP 128/68
--- NOTE | 2016-07-24 06:21 | PN- Housestaff ---
Subjective Follow-up For: Nonhealing ulcers in BLEs Subjective: Patient seen and examined at bedside. She reports pain is well controlled with IV Morphine, currently at 6 out of 10 this morning. No new complaints. Afebrile and HDS with VSS. WBC WNL. Review of Systems Constitutional: Reports: see HPI. Objective Last 24 Hrs of Vital Signs/I&O Vital Signs Date Time Temp Pulse Resp B/P Pulse O2 O2 Flow FiO2 Ox Delivery Rate 07/24 0615 98.1 89 20 128/68 96 Nasal 2.0L Cannula 07/24 0000 97 Nasal 2.0L Cannula 07/23 2224 98.1 81 20 130/70 97 Nasal Cannula 07/23 2106 148/70 07/23 1600 96 Nasal 2.0L Cannula 07/23 1532 97.8 80 18 120/58 98 Intake & Output 07/24 1600 07/24 0800 07/24 0000 Intake Total 100 120 Output Total 200 350 Balance -100 -230 Intake, Oral 100 120 Output, Urine 200 350 Physical Exam General Appearance: Alert, Oriented X3, Cooperative, No Acute Distress Other Physical Findings: Skin BLEs wrapped with dressings, patient refusing undressing. HEENT Atraumatic, PERRLA, EOMI, Mucous Membr. moist/pink Neck Supple, No JVD, +2 Carotid Pulse wo Bruit, No LAD Cardiovascular Regular Rate, Normal S1, Normal S2, Systolic murmur (Grade II) at aortic Lungs Clear to Auscultation, Normal Air Movement Abdomen Normal Bowel Sounds, Soft, No Tenderness Neurological Normal Speech, Sensation Intact, Cranial Nerves 3-12 NL Extremities No Clubbing, No Cyanosis, No Edema, Limited due to dressings Current Medications: Current Medications Sig/Amrita Start time Last Medication Dose Route Stop Time Status Admin Aspirin 81 MG DAILY 07/23 1000 AC 07/24 PO 1034 Atorvastatin Calcium 20 MG AT BEDTIME 07/22 2199 AC 07/23 PO 2105 Dextrose/Sodium 1,000 ML Q13H 07/23 0100 DC 07/23 Chloride IV 07/23 1359 0126 Duloxetine HCl 30 MG QPM 07/22 2199 AC 07/23 PO 2105 Enoxaparin Sodium 40 MG DAILY 07/23 1000 AC 07/24 SC 1040 Gabapentin 100 MG Q8 PRN 07/22 1815 AC PO Hydromorphone HCl 0.6 MG ONCE ONE 07/24 1000 DC 07/24 IV 07/24 1001 1035 Hydroxyurea 500 MG DAILY 07/22 1811 AC 07/24 PO 1034 Levothyroxine Sodium 0.075 MG DAILY AC 07/23 0700 AC 07/24 PO 0523 Metoprolol Tartrate 25 MG BID 07/22 2200 AC 07/23 PO 2106 Morphine Sulfate 2 MG Q6P PRN 07/22 1900 AC 07/24 IV 0551 Tramadol HCl 50 MG Q6P PRN 07/22 1815 AC 07/23 PO 0835 Vancomycin HCl 1,000 MG DAILY 07/22 2230 AC 07/24 Dextrose/Water 250 ML IV 1035 Last 24 Hrs of Lab/Everardo Results Last 24 Hrs of Labs/Mics: Laboratory Tests 07/24/16 0720: CBC w Diff NO MAN DIFF REQ, RBC 2.59 L, MCV 98.0, MCH 32.7 H, RDW 17.2 H, MPV 7.0 L, Gran % 74.8, Lymphocytes % 14.7 L, Monocytes % 9.9 H, Eosinophils % 0.5, Basophils % 0.1, Absolute Granulocytes 7.5 H, Absolute Lymphocytes 1.5, Absolute Monocytes 1.0 H, Absolute Eosinophils 0, Absolute Basophils 0, PUBS MCHC 33.4 Assessment/Plan Assessment: Ms. Bauer is a 81 year old lady with a PMH significant for skin cancer (unknown type) in BLEs, PAD, chronic venous insufficeincy, HTN, HLD, CHF, thrombocytosis, Graves disease, hypothyroidism, brain tumor, depression, and benzo abuse, presenting with worsening bilateral lower extremity edema and pain secondary to nonhealing ulcers of BLE. #Nonhealing ulcers of BLE: Has been following [facility]. Has had extensive venous and arterial testing per vascular surgery. Does not have significant PAD but has had venous disease which has been treated. Per vascular during last admission, patient's leg edema and ulceration was exacerbated by noncompliance with compression therapy and leg elevation. She has previously responded to treatment during hospitalization with improvement of her wounds. * Wound care consulted, follow recs * Continue leg elevation and compression from foot to knee. * Vascular consulted, follow recs * Continue local wound care with Adaptic, Aquacel and Kerlix and Kelton daily; avoid Xeroform as per vascular rec. * Adequate pain control with Morphine 2mg IV Q6P and Ultram 50 mg PO Q6P * May give 0.4-0.6mg IV Dilaudid one time dose for excruciating pain * Cont Lasix 40mg IV daily * Wire R[employer] Sales Representative (Dr. Biggs) consulted, follow recs #Depression: Likely contributing to her noncompliance with therapy. * Continue home med Cybalta 30mg PO qPM * Consider psych consider * Avoid benzodiazepines in the setting of history of benzodiazepine abuse. #HTN: * Continue home med Lopressor 25mg PO BID * Lasix as above #Thrombosis * Continue home med hydroxyurea 500 mg PO QD #HLD * Continue home meds Lipitor 20mg PO qHS and aspirin 81 mg PO QD #Hypothyroidism: History of Grave's disease. * Continue home med levotyroxine 75 mcg PO QD Diet: Heart healthy DVT PPx: Lovenox 40 mg SQ QD CODE: FULL Problem List: 1. Hypothyroid 2. Hypertension 3. DVT prophylaxis 4. Intractable pain 5. Lower extremity edema 6. Leg pain, bilateral 7. Non-healing ulcer of lower extremity 8. PAD (peripheral artery disease) Pain Ratin Pain Location: BLEs Pain Goal: Pain 4 or less Pain Plan: Morpine 2mg IV Q6 Tomorrow's Labs & Rationales: CBC to mintor for leukocytosis
[2016-07-24 08:17] LABS: ABSOLUTE BASOPHIL COUNT 0 /CUMM (0.0-0.2); ABSOLUTE EOSINOPHIL COUNT 0 /CUMM (0.0-0.7); ABSOLUTE GRANULOCYTE CT 7.5 /CUMM (1.4-6.5); ABSOLUTE LYMPH COUNT 1.5 /CUMM (1.2-3.4); BASOPHIL % 0.1 % (0.0-2.0); EOSINOPHIL % 0.5 % (0-5); GRANULOCYTE % 74.8 % (42.2-75.2); HEMATOCRIT 25.3 % (37-47); MEAN CORPUSCULAR HGB 32.7 PG (27.0-31.0); MEAN CORPUSCULAR HGB CONC 33.4 G/DL (33.0-37.0); PLATELET COUNT 610 /CUMM (130-400); RBC DISTRIBUTION WIDTH 17.2 % (11.5-14.5); RED BLOOD CELL CT 2.59 /CUMM (4.20-5.40)
--- NOTE | 2016-07-24 12:26 | PN- Att Addend ---
Attending Addendum Attending Brief Note Patient looking a little better and brighter, a febrile overnight legs maybe a little less edematous in the color of the toes is improved, legs are still wrapped , white count is 10,000 this morning we'll continue present treatment follow recommendations as per vascular and cardiology. Current Medications Sig/Amrita Start time Last Medication Dose Route Stop Time Status Admin Aspirin 81 MG DAILY 07/23 1000 AC 07/24 PO 1034 Atorvastatin Calcium 20 MG AT BEDTIME 07/22 2199 AC 07/23 PO 2105 Dextrose/Sodium 1,000 ML Q13H 07/23 0100 DC 07/23 Chloride IV 07/23 1359 0126 Duloxetine HCl 30 MG QPM 07/22 2200 AC 07/23 PO 2105 Enoxaparin Sodium 40 MG DAILY 07/23 1000 AC 07/24 SC 1040 Gabapentin 100 MG Q8 PRN 07/22 1815 AC PO Hydromorphone HCl 0.6 MG ONCE ONE 07/24 1000 DC 07/24 IV 07/24 1001 1035 Hydroxyurea 500 MG DAILY 07/22 181 AC 07/24 PO 1034 Levothyroxine Sodium 0.075 MG DAILY AC 07/23 0700 AC 07/24 PO 0523 Metoprolol Tartrate 25 MG BID 07/22 2200 AC 07/23 PO 2106 Morphine Sulfate 2 MG Q6P PRN 07/22 1900 AC 07/24 IV 0551 Tramadol HCl 50 MG Q6P PRN 07/22 1815 AC 07/23 PO 0835 Vancomycin HCl 1,000 MG DAILY 07/22 2230 AC 07/24 Dextrose/Water 250 ML IV 1035 Laboratory Tests 07/24/16 0720: CBC w Diff NO MAN DIFF REQ, RBC 2.59 L, MCV 98.0, MCH 32.7 H, RDW 17.2 H, MPV 7.0 L, Gran % 74.8, Lymphocytes % 14.7 L, Monocytes % 9.9 H, Eosinophils % 0.5, Basophils % 0.1, Absolute Granulocytes 7.5 H, Absolute Lymphocytes 1.5, Absolute Monocytes 1.0 H, Absolute Eosinophils 0, Absolute Basophils 0, PUBS MCHC 33.4 Vital Signs Date Time Temp Pulse Resp B/P Pulse O2 O2 Flow FiO2 Ox Delivery Rate 07/24 0615 98.1 89 20 128/68 96 Nasal 2.0L Cannula
[2016-07-24 15:26] VITALS: BP 110/58
[2016-07-24 23:35] VITALS: BP 124/60
[2016-07-25 00:51] VITALS: BP 126/60
--- NOTE | 2016-07-25 01:39 | RADIOLOGY REPORT ---
EXAMINATION: XR PORTABLE CHEST CLINICAL INFORMATION: Pleuritic chest pain COMPARISON: 07/22/2016 TECHNIQUE: Portable AP semiupright view of the chest was obtained. FINDINGS: The lungs are well expanded. Minimal blunting at the left costophrenic angle suggests a small pleural effusion. Increased markings are noted at the left mid to lower lung. The right lung is clear. No pneumothorax. The cardiomediastinal silhouette is unchanged. Surgical clips are seen in the left axilla. Cervical fusion hardware noted. IMPRESSION: Prominent lung markings at the left mid to lower lung could represent atelectasis or pneumonia. Small left pleural effusion.
--- NOTE | 2016-07-25 02:32 | Event Note ---
Event Note Event Note: Around 2am, pt was complaining of sharp pain across the upper abdomen, rated as 4/10. She was not in distress when I evaluated her. No new EKG changes. CXR shows possible PNA/atelectasis Assessment: - Upper abdominal pain most likely due to indigestion - CXR shows possible PNA however pt does not have cough, and findings are most likely due to atelectasis Plan: - 1 time tums - incentive spirometry - follow up troponin - am team to decide if abx needs to be switched/broadened (currently on vancomycin)
[2016-07-25 03:03] LABS: ABSOLUTE BASOPHIL COUNT 0 /CUMM (0.0-0.2); ABSOLUTE EOSINOPHIL COUNT 0.1 /CUMM (0.0-0.7); ABSOLUTE GRANULOCYTE CT 7.8 /CUMM (1.4-6.5); ABSOLUTE LYMPH COUNT 1.7 /CUMM (1.2-3.4); ABSOLUTE MONOCYTE COUNT 1.1 /CUMM (0.10-0.60); BASOPHIL % 0.1 % (0.0-2.0); EOSINOPHIL % 0.7 % (0-5); GRANULOCYTE % 73.2 % (42.2-75.2); MEAN CORPUSCULAR HGB 32.4 PG (27.0-31.0); MEAN CORPUSCULAR HGB CONC 32.7 G/DL (33.0-37.0); MEAN CORPUSCULAR VOLUME 98.9 FL (81.0-99.0); MEAN PLATELET VOLUME 6.8 FL (7.4-10.4); PLATELET COUNT 640 /CUMM (130-400); RBC DISTRIBUTION WIDTH 16.8 % (11.5-14.5); RED BLOOD CELL CT 2.42 /CUMM (4.20-5.40); WHITE BLOOD CELL COUNT 10.7 /CUMM (4.8-10.8)
--- NOTE | 2016-07-25 06:25 | PN- Housestaff ---
See Addendum Subjective Follow-up For: Nonhealing ulcers in BLEs Subjective: Patient seen and examined at bedside. Patient reports pain is under control this morning. She had the dressing changed yesterday by wound care nurse Melvina. 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 No new complaints and no events reported overnight otherwise. Denies any dyspnea, palpitations, chest pain, n/v/c/d. Review of Systems Constitutional: Reports: see HPI. Objective Last 24 Hrs of Vital Signs/I&O Vital Signs Date Time Temp Pulse Resp B/P Pulse O2 O2 Flow FiO2 Ox Delivery Rate 07/25 1118 Nasal 2.0L Cannula 07/25 1041 Nasal 2.0L Cannula 07/25 0903 80 138/62 07/25 0631 97.7 80 20 138/62 96 Nasal 2.0L Cannula 07/25 0051 78 126/60 07/25 0000 93 Nasal 2.0L Cannula 07/24 2335 98.9 90 20 124/60 93 Room Air 07/24 2030 103 142/60 07/24 1526 98.1 96 20 110/58 98 Intake & Output 07/25 1600 07/25 0800 07/25 0000 Intake Total 320 240 360 Output Total 250 200 Balance 320 -10 160 Intake, Oral 320 240 360 Output, Urine 250 200 Patient 48.704 kg Weight Physical Exam General Appearance: Alert, Oriented X3, Cooperative, No Acute Distress Other Physical Findings: Skin BLEs wrapped with dressings, patient refusing undressing. HEENT Atraumatic, PERRLA, EOMI, Mucous Membr. moist/pink Neck Supple, No JVD, +2 Carotid Pulse wo Bruit, No LAD Cardiovascular Regular Rate, Normal S1, Normal S2, Systolic murmur (Grade II) at aortic Lungs Clear to Auscultation, Normal Air Movement Abdomen Normal Bowel Sounds, Soft, No Tenderness Neurological Normal Speech, Sensation Intact, Cranial Nerves 3-12 NL Extremities No Clubbing, No Cyanosis, No Edema, Limited due to dressings Current Medications: Current Medications Sig/Amrita Start time Last Medication Dose Route Stop Time Status Admin Aspirin 81 MG DAILY 07/23 1000 AC 07/25 PO 0903 Atorvastatin Calcium 20 MG AT BEDTIME 07/22 2200 AC 07/24 PO 2030 Calcium Carbonate 500 MG ONCE ONE 07/25 0230 DC 07/25 PO 07/25 0231 0236 Duloxetine HCl 30 MG QPM 07/22 2200 AC 07/24 PO 2031 Enoxaparin Sodium 40 MG DAILY 07/23 1000 AC 07/25 SC 0903 Gabapentin 100 MG Q8 PRN 07/22 181 AC 07/25 PO 0903 Hydromorphone HCl 0.4 MG ONCE ONE 07/25 1145 DC 07/25 IV 07/25 1146 1154 Hydromorphone HCl 0.4 MG ONCE ONE 07/24 1600 DC 07/24 IV 07/24 1601 1713 Hydroxyurea 500 MG DAILY 07/22 181 AC 07/25 PO 0903 Levothyroxine Sodium 0.075 MG DAILY AC 07/23 0700 AC 07/25 PO 0613 Metoprolol Tartrate 25 MG BID 07/22 2199 AC 07/25 PO 0903 Morphine Sulfate 2 MG Q6P PRN 07/22 1900 AC 07/25 IV 0236 Senna/Docusate Sodium 1 TAB BID PRN 07/25 0915 AC PO Tramadol HCl 50 MG Q6P PRN 07/22 181 AC 07/25 PO 0613 Vancomycin HCl 1,000 MG DAILY 07/22 2230 AC 07/25 Dextrose/Water 250 ML IV 0903 Last 24 Hrs of Lab/Everardo Results Last 24 Hrs of Labs/Mics: Laboratory Tests 07/25/16 0240: Troponin I < 0.01 07/25/16 0240: Anion Gap 11, Estimated GFR > 60, BUN/Creatinine Ratio 17.1, CBC w Diff NO MAN DIFF REQ, RBC 2.42 L, MCV 98.9, MCH 32.4 H, RDW 16.8 H, MPV 6.8 L, Gran % 73.2, Lymphocytes % 15.8 L, Monocytes % 10.2 H, Eosinophils % 0.7, Basophils % 0.1, Absolute Granulocytes 7.8 H, Absolute Lymphocytes 1.7, Absolute Monocytes 1.1 H, Absolute Eosinophils 0.1, Absolute Basophils 0, PUBS MCHC 32.7 L Assessment/Plan Assessment: Ms. Bauer is a 81 year old lady with a PMH significant for skin cancer (unknown type) in BLEs, PAD, chronic venous insufficeincy, HTN, HLD, CHF, thrombocytosis, Graves disease, hypothyroidism, brain tumor, depression, and benzo abuse, presenting with worsening bilateral lower extremity edema and pain secondary to nonhealing ulcers of BLE. #Nonhealing ulcers of BLE: [facility] following [facility]. Has had extensive venous and arterial testing per vascular surgery. Does not have significant PAD but has had venous disease which has been treated. Per vascular during last admission, patient's leg edema and ulceration was exacerbated by noncompliance with compression therapy and leg elevation. She has previously responded to treatment during hospitalization with improvement of her wounds. * Wound care consulted, follow recs * Continue leg elevation and compression from foot to knee. * Vascular consulted, follow recs * Continue local wound care with Adaptic, Aquacel and Kerlix and Kelton daily; avoid Xeroform as per vascular rec. * Adequate pain control with Morphine 2mg IV Q6P and Ultram 50 mg PO Q6P * May give 0.4-0.6mg IV Dilaudid one time dose for excruciating pain * Cont Lasix 40mg IV daily * Supervisor [employer] Department (Dr. Biggs) consulted, follow recs # Urinary incontinence Per daughter patient's urinary incontinence has worsened recently. It appears that her urine may have interfered with her leg ulcers. Urology consulted on 06/28. Dr. Mejía recommended a follow up outpatient. * Continue brewer for strict I/Os per 's recommendation for now * May d/c brewer tomorrow #Depression: * Continue home med Cybalta 30mg PO qPM * Consider psych consider * Avoid benzodiazepines in the setting of history of benzodiazepine abuse. #HTN: * Continue home med Lopressor 25mg PO BID * Lasix as above #Thrombosis * Continue home med hydroxyurea 500 mg PO QD #HLD * Continue home meds Lipitor 20mg PO qHS and aspirin 81 mg PO QD #Hypothyroidism: History of Grave's disease. * Continue home med levotyroxine 75 mcg PO QD Diet: Heart healthy DVT PPx: Lovenox 40 mg SQ QD CODE: FULL Problem List: 1. PAD (peripheral artery disease) 2. Intractable pain 3. Lower extremity edema Pain Ratin Pain Location: Legs Pain Goal: Pain 4 or less Pain Plan: Moderate pain pathway Tomorrow's Labs & Rationales: CBC to trend WBC
[2016-07-25 06:31] VITALS: BP 138/62
--- NOTE | 2016-07-25 11:07 | PN- Att Addend ---
Attending Addendum Attending Brief Note Patient looking and feeling better and brighter. The legs were rewrapped the toes look much pinker Thursday edema slowly coming down. Her blood pressure stable and monitoring on heparin present medications area no other changes on physical will continue with the rest elevation of the legs, continue rest and treatment Current Medications Sig/Amrita Start time Last Medication Dose Route Stop Time Status Admin Aspirin 81 MG DAILY 07/23 1000 AC 07/25 PO 0903 Atorvastatin Calcium 20 MG AT BEDTIME 07/22 2199 AC 07/24 PO 2030 Calcium Carbonate 500 MG ONCE ONE 07/25 0230 DC 07/25 PO 07/25 0231 0236 Duloxetine HCl 30 MG QPM 07/22 220 AC 07/24 PO 2031 Enoxaparin Sodium 40 MG DAILY 07/23 1000 AC 07/25 SC 0903 Gabapentin 100 MG Q8 PRN 07/22 181 AC 07/25 PO 0903 Hydromorphone HCl 0.4 MG ONCE ONE 07/24 1600 DC 07/24 IV 07/24 1601 1713 Hydroxyurea 500 MG DAILY 07/22 181 AC 07/25 PO 0903 Levothyroxine Sodium 0.075 MG DAILY AC 07/23 0700 AC 07/25 PO 0613 Metoprolol Tartrate 25 MG BID 07/22 2200 AC 07/25 PO 0903 Morphine Sulfate 2 MG Q6P PRN 07/22 1900 AC 07/25 IV 0236 Patient Medication 1 ED .STK-MED ONE 07/24 1329 SD Teaching ED 07/24 1330 Senna/Docusate Sodium 1 TAB BID PRN 07/25 0915 AC PO Tramadol HCl 50 MG Q6P PRN 07/22 181 AC 07/25 PO 0613 Vancomycin HCl 1,000 MG DAILY 07/22 2230 AC 07/25 Dextrose/Water 250 ML IV 0903 Laboratory Tests 07/25/16 0240: Troponin I < 0.01 07/25/16 0240: Anion Gap 11, Estimated GFR > 60, BUN/Creatinine Ratio 17.1, CBC w Diff NO MAN DIFF REQ, RBC 2.42 L, MCV 98.9, MCH 32.4 H, RDW 16.8 H, MPV 6.8 L, Gran % 73.2, Lymphocytes % 15.8 L, Monocytes % 10.2 H, Eosinophils % 0.7, Basophils % 0.1, Absolute Granulocytes 7.8 H, Absolute Lymphocytes 1.7, Absolute Monocytes 1.1 H, Absolute Eosinophils 0.1, Absolute Basophils 0, PUBS MCHC 32.7 L Vital Signs Date Time Temp Pulse Resp B/P Pulse O2 O2 Flow FiO2 Ox Delivery Rate 07/25 1041 Nasal 2.0L Cannula 07/25 0903 80 138/62 07/25 0631 97.7 80 20 138/62 96 Nasal 2.0L Cannula 07/25 0051 78 126/60 07/25 0000 93 Nasal 2.0L Cannula 07/24 2335 98.9 90 20 124/60 93 Room Air 07/24 2030 103 142/60 07/24 1526 98.1 96 20 110/58 98 Intake & Output 07/25 1600 07/25 0800 07/25 0000 Intake Total 320 240 360 Output Total 250 200 Balance 320 -10 160 Intake, Oral 320 240 360 Output, Urine 250 200 Patient 107 lb Weight
[2016-07-25 14:08] VITALS: BP 112/80
[2016-07-25] MEDS ORDERED: AUGMENTIN 500-1 EACH PO (16:15)
--- NOTE | 2016-07-25 16:18 | Patient Discharge Instructions ---
Discharge Instructions General Discharge Information You were seen/treated for: Leg ulcers with possible cellulitis Special Instructions: 1. Please follow up with Dr. Uribe (vascular surgeon), Dr. Biggs (cardiology) and Dr. Franklin (primary care) within a week of discharge. 2. Keep your leg elevated as much as possible. 3. Return to ED if you have fever, chills, sweats, or worsening pain/ulcers. Diet Continue normal diet: Yes Activity Other activity limits: Keep your leg elevated as much as possible. Acute Coronary Syndrome Inclusion Criteria At DC or during hospital stay patient has or had the following: ACS DIAGNOSIS No Discharge Core Measures Meds if any: Prescribed or Continued at Discharge Meds if any: NOT Prescribed or Continued at Discharge Congestive Heart Failure Inclusion Criteria At DC or during hospital stay patient has or had the following: CHF DIAGNOSIS No Discharge Core Measures Meds if any: Prescribed or Continued at Discharge Meds if any: NOT Prescribed or Continued at Discharge Cerebrovascular accident Inclusion Criteria At DC or during hospital stay patient has or had the following: CVA/TIA Diagnosis No Discharge Core Measures Meds if any: Prescribed or Continued at Discharge Meds if any: NOT Prescribed or Continued at Discharge Venous thromboembolism Inclusion Criteria VTE Diagnosis No VTE Type NONE VTE Confirmed by (Test) NONE Discharge Core Measures - Per Current guidelines, there needs to be overlap - treatment for the first 5 days of Warfarin therapy. - If discharged on Warfarin prior to 5 days of - overlap therapy, the patient will need to be - assessed for post discharge needs including - *Post discharge parental anticoagulation - *Warfarin and/or parental anticoagulation education - *Follow up date to check INR post discharge At least 5 days overlap therapy as Inpatient No Meds if any: Prescribed or Continued at Discharge Note: Overlap Therapy is Warfarin and Anticoagulant Meds if any: NOT Prescribed or Continued at Discharge
--- NOTE | 2016-07-25 16:36 | Discharge Summary ---
Visit Information Visit Dates Admission Date: 07/22/16 Discharge Date: 07/28/16 Hospital Course Course Attending Physician: RIANNA FRANKLIN MD Primary Care Physician: RIANNA FRANKLIN MD Consulting Request: Consulting Specialty: Pulmonary Disease Hospital Course: Ms. Bauer is a 81 year old lady with a PMH significant for skin cancer (unknown type) in BLEs, PAD, chronic venous insufficeincy, HTN, HLD, CHF, thrombocytosis, Graves disease, hypothyroidism, brain tumor, depression, and benzo abuse, presenting with worsening bilateral lower extremity edema and pain secondary to nonhealing ulcers of BLE. Problem List #Sepsis Likely from infected ulcers in her lower extremities. Was started on IV vancomycin and subsequently switched to oral augmentin to complete a 7 day course. #Nonhealing ulcers of BLE: Patient has been following at [facility] a [facility]. Has had extensive venous and arterial testing per vascular surgery. Does not have significant PAD but has had venous disease which has been treated. Per vascular surgeon, during last admission patient's leg edema and ulceration was exacerbated by noncompliance with compression therapy and leg elevation. She has previously responded to treatment during hospitalization with improvement of her wounds. Compression therapy and leg elevation instituted. Continue local wound care with Adaptic, Aquacel and Kerlix and Kelton daily; avoid Xeroform as per vascular recommendations. Adequate pain control. Cont Lasix 40mg po daily. Continue to follow with cardiology and vascular surgery keep the leg elevated as much as possible. #Anemia Had a drop in H&H to 7.7/23.3 but this has stabilized to 8.8/27.6. Possibly multifactorial. She will need close follow up of her CBC as outpatient. # Urinary incontinence Per daughter patient's urinary incontinence has worsened recently. It appears that her incontinence may have interfered with healing of her leg ulcers. Urology recommends follow up as outpatient. #Depression: Stable. Continue home med Cybalta 30mg PO qPM. Avoid benzodiazepines in the setting of history of benzodiazepine abuse. #HTN: Continue home med Lopressor 25mg PO BID. Lasix as above #Thrombocytosis Continue home medication hydroxyurea 500 mg PO QD. Close follow up with hematology. #HLD Continue home meds Lipitor 20mg PO qHS and aspirin 81 mg PO QD #Hypothyroidism: History of Grave's disease. Continue home med levotyroxine 75 mcg PO QD #Mild Hyperkalemia Resolved. Complications: None Allergies: Coded Allergies: codeine (Severe, SOB AND CHILLS 07/22/16) Significant Procedures: none Pertinent Lab Results: Laboratory Tests 07/28 07/27 07/27 0641 1920 1800 Chemistry Sodium (137 - 145 mmol/L) 137 Potassium (3.5 - 5.1 mmol/L) 4.3 4.8 Cancelled Chloride (98 - 107 mmol/L) 98 Carbon Dioxide (22 - 30 mmol/L) 32 H Anion Gap (5 - 16) 7 BUN (7 - 17 mg/dL) 16 Creatinine (0.5 - 1.0 mg/dL) 0.8 Estimated GFR (>60 ml/min) > 60 BUN/Creatinine Ratio (7 - 25 %) 20.0 07/27 0634 Chemistry Sodium (137 - 145 mmol/L) 138 Potassium (3.5 - 5.1 mmol/L) 5.2 H Chloride (98 - 107 mmol/L) 92 L Carbon Dioxide (22 - 30 mmol/L) 32 H Anion Gap (5 - 16) 14 BUN (7 - 17 mg/dL) 14 Creatinine (0.5 - 1.0 mg/dL) 0.9 Estimated GFR (>60 ml/min) 60 BUN/Creatinine Ratio (7 - 25 %) 15.6 Iron (37 - 170 ug/dL) 39 TIBC (265 - 497 ug/dL) 303 Ferritin (11.1 - 264 ng/mL) 53.4 Vitamin B12 (239 - 931 pg/mL) 409 Hematology CBC w Diff NO MAN DIFF REQ WBC (4.8 - 10.8 /CUMM) 7.1 RBC (4.20 - 5.40 /CUMM) 2.76 L Hgb (12.0 - 16.0 G/DL) 8.8 L Hct (37 - 47 %) 27.6 L MCV (81.0 - 99.0 FL) 100.2 H MCH (27.0 - 31.0 PG) 32.0 H RDW (11.5 - 14.5 %) 16.6 H Plt Count (130 - 400 /CUMM) 672 H MPV (7.4 - 10.4 FL) 6.9 L Gran % (42.2 - 75.2 %) 50.6 Lymphocytes % (20.5 - 51.1 %) 30.1 Monocytes % (1.7 - 9.3 %) 17.0 H Eosinophils % (0 - 5 %) 1.6 Basophils % (0.0 - 2.0 %) 0.7 Absolute Granulocytes (1.4 - 6.5 /CUMM) 3.6 Absolute Lymphocytes (1.2 - 3.4 /CUMM) 2.1 Absolute Monocytes (0.10 - 0.60 /CUMM) 1.2 H Absolute Eosinophils (0.0 - 0.7 /CUMM) 0.1 Absolute Basophils (0.0 - 0.2 /CUMM) 0 PUBS MCHC (33.0 - 37.0 G/DL) 31.9 L Disposition Summary Disposition Principal Diagnosis: Sepsis, non-healing ulcer bilateral lower extremities Additional Diagnosis: urinary incontinence, depression, thrombocytosis, hypothyroidism, Anemia Discharge Disposition: STR Discharge Instructions General Discharge Information Code Status: Do Not Resucitate/Intubat Patient's Diet: Regular diet Patient's Activity: As tolerated Follow-Up Instructions/Appts: 1. Please follow up with Dr. Uribe (vascular surgeon), Dr. Biggs (cardiology) and Dr. Franklin (primary care) within a week of discharge. 2. Keep your leg elevated as much as possible. 3. Return to ED if you have fever, chills, sweats, or worsening pain/ulcers. Medications at Discharge Discharge Medications: Continue taking these medications: Risedronate Sodium (Atelvia) 35 MG TABLET. 1 Tablet ORAL EVERY THURSDAY Instructions: after food with at least 4 ounces of plain water Comments: PER PT DAUGHTER Levothyroxine Sodium (Levothyroxine Sodium) 75 MCG TABLET 1 Tablet ORAL As Directed Comments: ALL DAYS EXCEPT MONDAYS PER PT DAUGHTER Metoprolol Tartrate (Metoprolol Tartrate) 25 MG TABLET 1 Tablet ORAL TWICE DAILY Comments: ON HOLD PER PT DAUGHTER - DECREASED FROM 50MG PO BID Hydroxyurea (Hydroxyurea) 500 MG CAPSULE 500 Milligram ORAL DAILY Qty = 90 Comments: Last Taken: 11/14/15 Time: 0900 AM Atorvastatin Calcium (Lipitor) 20 MG TABLET 1 Tablet ORAL AT BEDTIME Comments: Last Taken: 11/14/15 Time: 0930 PM Aspirin (Ecotrin) 81 MG ECT 1 Tablet ORAL DAILY Comments: Last Taken: 11/14/15 Time: 0900 AM Furosemide (Lasix) 40 MG TABLET 1 Tablet ORAL DAILY Qty = 30 Comments: Last Taken: 04/24/16 Time: 0925 Tramadol HCl (Tramadol HCl) 50 MG TABLET 1 Tablet ORAL EVERY SIX HOURS NEEDED as needed for PAIN Qty = 30 Comments: Last Taken: 04/23/16 Time: 0920 Duloxetine HCl (Duloxetine HCl) 30 MG CAPSULE.DR 1 Capsule ORAL Every night Qty = 30 Comments: Last Taken: 04/24/16 Time: 1000 Acetaminophen (Tylenol Extra Strength) 500 MG TABLET 1 Tablet ORAL TWICE DAILY Comments: NOT GIVEN Gabapentin (Gabapentin) 100 MG CAPSULE 1 Tablet ORAL EVERY 8 HOURS as needed for ANXIETY/INSOMNIA/PAIN Qty = 30 Instructions: PATIENT CAN GET 300MG ALTOGETHER AT BED TIME NEEDED. Comments: PT IS TAKING 0600, 1200, 1808 Start taking the following new medications: Oxycodone HCl/Acetaminophen (Percocet 5-325 MG Tablet) 5 MG-325 MG TABLET 1 Tablet ORAL EVERY SIX HOURS NEEDED as needed for PAIN SCALE 7-10 ( SEVERE) Qty = 10 No Refills Sennosides/Docusate Sodium (Senna Plus Tablet) 8.6 MG-50 MG TABLET 1 Tablet ORAL TWICE DAILY Days = 30 No Refills Instructions: STOP IF YOU HAVE LOOSE STOOLS. Copies To: KADE MALAGON,RIANNA
--- NOTE | 2016-07-25 16:58 | PN- Cardiology ---
Subjective Subjective: Patient resting in bed. Still with LE discomfort. Objective Vital Signs and I&Os Vital Signs Date Time Temp Pulse Resp B/P Pulse O2 O2 Flow FiO2 Ox Delivery Rate 07/25 1408 97.4 63 20 112/80 94 Nasal 2.0L Cannula 07/25 1118 Nasal 2.0L Cannula 07/25 1041 Nasal 2.0L Cannula 07/25 0903 80 138/62 07/25 0631 97.7 80 20 138/62 96 Nasal 2.0L Cannula 07/25 0051 78 126/60 07/25 0000 93 Nasal 2.0L Cannula 07/24 2335 98.9 90 20 124/60 93 Room Air 07/24 2030 103 142/60 Intake & Output 07/25 1600 07/25 0800 07/25 0000 07/24 1600 07/24 0800 07/24 0000 Intake Total 800 240 360 400 100 120 Output Total 400 250 200 200 350 Balance 400 -10 160 400 -100 -230 Intake, Oral 800 240 360 400 100 120 Output, Urine 400 250 200 200 350 Patient 107 lb 111 lb Weight Physical Exam: General Appearance Alert, Oriented X3, Cooperative, No Acute Distress Skin BLEs wrapped with dressings HEENT Atraumatic, PERRLA, EOMI, Mucous Membr. moist/pink Neck Supple, No JVD, +2 Carotid Pulse wo Bruit Cardiovascular Regular Rate, Normal S1, Normal S2, 1 to 2/6 systolic murmur left sternal border Lungs Clear to Auscultation and percussion bilaterally Abdomen Normal Bowel Sounds, Soft, No Tenderness Neurological Normal Speech, Sensation Intact, Cranial Nerves 3-12 NL Extremities No Clubbing, No Cyanosis, mild edema greater on the right side, examination Limited due to dressings in place Current Medications: Current Medications Sig/Amrita Start time Last Medication Dose Route Stop Time Status Admin Amoxicillin/ 500 MG Q12 07/25 2199 AC Clavulanate Potassium PO 07/28 2299 Aspirin 81 MG DAILY 07/23 999 AC 07/25 PO 902 Atorvastatin Calcium 20 MG AT BEDTIME 07/22 2199 AC 07/24 PO 2030 Calcium Carbonate 500 MG ONCE ONE 07/25 023 DC 07/25 PO 07/25 023 023 Duloxetine HCl 30 MG QPM 07/22 2199 AC 07/24 PO 2030 Enoxaparin Sodium 40 MG DAILY 07/23 1000 AC 07/25 SC 0903 Gabapentin 100 MG Q8 PRN 07/22 181 AC 07/25 PO 0903 Hydromorphone HCl 0.4 MG ONCE ONE 07/25 1145 DC 07/25 IV 07/25 1146 1154 Hydroxyurea 500 MG DAILY 07/22 1811 AC 07/25 PO 0903 Levothyroxine Sodium 0.075 MG DAILY AC 07/23 0700 AC 07/25 PO 0613 Metoprolol Tartrate 25 MG BID 07/22 2200 AC 07/25 PO 0903 Morphine Sulfate 2 MG Q6P PRN 07/22 1900 AC 07/25 IV 0236 Patient Medication 1 ED .STK-MED ONE 07/25 1400 DC Teaching ED 07/25 1401 Senna/Docusate Sodium 1 TAB BID PRN 07/25 0915 AC PO Tramadol HCl 50 MG Q6P PRN 07/22 1815 AC 07/25 PO 0613 Vancomycin HCl 1,000 MG DAILY 07/22 2230 DC 07/25 Dextrose/Water 250 ML IV 0903 Results Last 48 Hrs of Labs/Mics: Laboratory Tests 07/25/16 0240: Troponin I < 0.01 07/25/16 0240: Anion Gap 11, Estimated GFR > 60, BUN/Creatinine Ratio 17.1, CBC w Diff NO MAN DIFF REQ, RBC 2.42 L, MCV 98.9, MCH 32.4 H, RDW 16.8 H, MPV 6.8 L, Gran % 73.2, Lymphocytes % 15.8 L, Monocytes % 10.2 H, Eosinophils % 0.7, Basophils % 0.1, Absolute Granulocytes 7.8 H, Absolute Lymphocytes 1.7, Absolute Monocytes 1.1 H, Absolute Eosinophils 0.1, Absolute Basophils 0, PUBS MCHC 32.7 L 07/24/16 0720: CBC w Diff NO MAN DIFF REQ, RBC 2.59 L, MCV 98.0, MCH 32.7 H, RDW 17.2 H, MPV 7.0 L, Gran % 74.8, Lymphocytes % 14.7 L, Monocytes % 9.9 H, Eosinophils % 0.5, Basophils % 0.1, Absolute Granulocytes 7.5 H, Absolute Lymphocytes 1.5, Absolute Monocytes 1.0 H, Absolute Eosinophils 0, Absolute Basophils 0, PUBS MCHC 33.4 Assessment/Plan Assessment/Plan Assessment: 1. Lower extremity edema related to venous insufficiency with nonhealing ulcers. 2. Chronic venous insufficiency, status post venous closure procedures 3. Chronic pain syndrome 4. Nonobstructive peripheral arterial disease-the patient had bilateral lower extremity arterial angiography performed in December 2015 which showed no focal obstructive arterial disease which would require intervention. 5. Hyperlipidemia 6. Hypertension 7. Hypothyroidism Recommendations: -Continue current medications -IV Lasix diuresis with once daily IV Lasix (20 or 40 mg) while in the hospital. Continue to monitor her intakes, outputs, and daily weights. -Follow-up labs in 24 hours -Vascular surgery/podiatry input as needed. -Continue conservative measures such as leg elevation, etc. -Full cultures pending Continue telemetry? No
[2016-07-25 22:56] VITALS: BP 110/60
[2016-07-26 06:23] VITALS: BP 112/60
--- NOTE | 2016-07-26 08:25 | PN- Housestaff ---
Subjective Follow-up For: Nonhealing ulcers in BLEs Presumed cellulitis Subjective: Patient seen and examined at bedside. Resting comfortably in bed with no new complaints. Pain is well controlled, currently at 7 out of 10. Patient woud like an extra one time dose of pain med before the nurse changes the dressing later today. Patient reports no BM for the past 2 days. Agrees to increasing her bowel regimen. 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 No new complaints and no events reported overnight otherwise. Denies any dyspnea , palpitations, chest pain, n/v/c/d. Review of Systems Constitutional: Reports: see HPI, chills. Objective Last 24 Hrs of Vital Signs/I&O Vital Signs Date Time Temp Pulse Resp B/P Pulse O2 O2 Flow FiO2 Ox Delivery Rate 07/26 0623 98.8 97 18 112/60 98 Nasal 2.0L Cannula 07/26 0000 Nasal 2.0L Cannula 07/25 2256 98.6 92 20 110/60 92 Nasal Cannula 07/25 2149 98.0 70 18 106/50 07/25 1600 Nasal 2.0L Cannula 07/25 1408 97.4 63 20 112/80 94 Nasal 2.0L Cannula 07/25 1118 Nasal 2.0L Cannula 07/25 1041 Nasal 2.0L Cannula 07/25 0903 80 138/62 Intake & Output 07/26 1600 07/26 0800 07/26 0000 Intake Total 120 100 Output Total 100 350 Balance 20 -250 Intake, Oral 120 100 Number 0 Bowel Movements Output, Urine 100 350 Patient 49.612 kg Weight Physical Exam General Appearance: Alert, Oriented X3, Cooperative, No Acute Distress Other Physical Findings: Skin BLEs wrapped with dressings, patient refusing undressing. HEENT Atraumatic, PERRLA, EOMI, Mucous Membr. moist/pink Neck Supple, No JVD, +2 Carotid Pulse wo Bruit, No LAD Cardiovascular Regular Rate, Normal S1, Normal S2, Systolic murmur (Grade II) at aortic Lungs Clear to Auscultation, Normal Air Movement Abdomen Normal Bowel Sounds, Soft, No Tenderness Neurological Normal Speech, Sensation Intact, Cranial Nerves 3-12 NL Extremities No Clubbing, No Cyanosis, No Edema, Limited due to dressings Current Medications: Current Medications Sig/Amrita Start time Last Medication Dose Route Stop Time Status Admin Amoxicillin/ 500 MG Q12 07/25 2200 CAN Clavulanate Potassium PO 07/28 2300 Aspirin 81 MG DAILY 07/23 1000 AC 07/25 PO 0903 Atorvastatin Calcium 20 MG AT BEDTIME 07/22 2200 AC 07/25 PO 2148 Duloxetine HCl 30 MG QPM 07/22 2200 AC 07/25 PO 2148 Enoxaparin Sodium 40 MG DAILY 07/23 1000 AC 07/25 SC 0903 Gabapentin 100 MG Q8 PRN 07/22 1815 AC 07/25 PO 0903 Hydromorphone HCl 0.4 MG ONCE ONE 07/25 1145 DC 07/25 IV 07/25 1146 1154 Hydroxyurea 500 MG DAILY 07/22 1811 AC 07/25 PO 0903 Levothyroxine Sodium 0.075 MG DAILY AC 07/23 0700 AC 07/26 PO 0538 Metoprolol Tartrate 25 MG BID 07/22 2200 AC 07/25 PO 0903 Morphine Sulfate 2 MG Q6P PRN 07/22 1900 AC 07/25 IV 2137 Patient Medication 1 ED .STK-MED ONE 07/25 1400 DC Teaching ED 07/25 1401 Prednisone 20 MG DAILY 07/25 1816 DC PO 07/26 1001 Senna/Docusate Sodium 1 TAB BID PRN 07/25 0915 AC PO Theophylline 200 MG AT BEDTIME 07/25 2199 CAN PO Tramadol HCl 50 MG Q6P PRN 07/22 181 AC 07/25 PO 2241 Vancomycin HCl 1,000 MG DAILY 07/22 2230 DC 07/25 Dextrose/Water 250 ML IV 0903 Last 24 Hrs of Lab/Everardo Results Last 24 Hrs of Labs/Mics: Laboratory Tests 07/26/16 0610: CBC w Diff Pending, WBC Pending, RBC Pending, Hgb Pending, Hct Pending, MCV Pending, MCH Pending, RDW Pending, Plt Count Pending, MPV Pending, PUBS MCHC Pending Assessment/Plan Assessment: Ms. Bauer is a 81 year old lady with a PMH significant for skin cancer (unknown type) in BLEs, PAD, chronic venous insufficeincy, HTN, HLD, CHF, thrombocytosis, Graves disease, hypothyroidism, brain tumor, depression, and benzo abuse, presenting with worsening bilateral lower extremity edema and pain secondary to nonhealing ulcers of BLE. #Nonhealing ulcers of BLE: Has been following [facility]. Has had extensive venous and arterial testing per vascular surgery. Does not have significant PAD but has had venous disease which has been treated. Per vascular during last admission, patient's leg edema and ulceration was exacerbated by noncompliance with compression therapy and leg elevation. She has previously responded to treatment during hospitalization with improvement of her wounds. * Wound care consulted, follow recs * Continue leg elevation and compression from foot to knee. * Vascular consulted, follow recs * Continue local wound care with Adaptic, Aquacel and Kerlix and Kelton daily; avoid Xeroform as per vascular rec. * Adequate pain control with Morphine 2mg IV Q6P and Ultram 50 mg PO Q6P * May give 0.4-0.6mg IV Dilaudid one time dose for excruciating pain * Resume Lasix 20mg PO, hold if SBP < 100 * Grubber (Dr. Biggs) consulted, follow recs # Sepsis most likely 2/2 cellulitis of the legs Patient noted to be febrile with leukocytosis on 07/22. She was started on Vancomycin and completed 4 days of it. Currently on Augmentin. Will complete 7 day course. * Cont Augentin 500mg PO BID to be finished on 07/28. * Vitals per protocol * Check CBC - WBC trending down # Anemia Patient's Hgb has been gradually trending down. * Check iron studies, B12 * CBC daily, trend H/H * Check guaic stool test # Urinary incontinence Per daughter patient's urinary incontinence has worsened recently. It appears that her urine may have interfered with her leg ulcers. Urology consulted on 06/28. Dr. Mejía recommended a follow up outpatient. * Continue brewer for strict I/Os per 's rec #Depression: * Continue home med Cybalta 30mg PO qPM * Consider psych consider * Avoid benzodiazepines in the setting of history of benzodiazepine abuse. #HTN: Patient has been slighlty hypotensive. * Hold home med Lopressor 25mg PO BID * Diuretics as per above-mentioned plan #Thrombocytopenia * Continue home med hydroxyurea 500 mg PO QD #HLD * Continue home meds Lipitor 20mg PO qHS and aspirin 81 mg PO QD #Hypothyroidism: History of Grave's disease. * Continue home med levotyroxine 75 mcg PO QD Diet: Heart healthy DVT PPx: Lovenox 40 mg SQ QD CODE: FULL Problem List: 1. PAD (peripheral artery disease) 2. Aortic stenosis, mild 3. Macrocytic anemia with vitamin B12 deficiency 4. History of thrombocytosis 5. Anxiety 6. Leg pain, bilateral 7. Intractable pain 8. Lower extremity edema Pain Ratin Pain Location: BLEs Pain Goal: Pain 4 or less Pain Plan: Morphine Tramadol Tomorrow's Labs & Rationales: None
[2016-07-26 08:41] LABS: ABSOLUTE BASOPHIL COUNT 0.1 /CUMM (0.0-0.2); ABSOLUTE EOSINOPHIL COUNT 0.1 /CUMM (0.0-0.7); ABSOLUTE GRANULOCYTE CT 4.4 /CUMM (1.4-6.5); BASOPHIL % 0.8 % (0.0-2.0); EOSINOPHIL % 1.2 % (0-5); GRANULOCYTE % 57.9 % (42.2-75.2); HEMATOCRIT 23.3 % (37-47); MEAN CORPUSCULAR HGB 32.6 PG (27.0-31.0); MEAN CORPUSCULAR HGB CONC 32.9 G/DL (33.0-37.0); MEAN CORPUSCULAR VOLUME 99.1 FL (81.0-99.0); MEAN PLATELET VOLUME 6.9 FL (7.4-10.4); PLATELET COUNT 603 /CUMM (130-400); RBC DISTRIBUTION WIDTH 16.9 % (11.5-14.5); RED BLOOD CELL CT 2.35 /CUMM (4.20-5.40); WHITE BLOOD CELL COUNT 7.6 /CUMM (4.8-10.8)
--- NOTE | 2016-07-26 12:29 | PN- Pulmonary ---
Subjective HPI/Critical Care Issues: Patient seen and examined at bedside. Resting comfortably in bed with no new complaints. Pain is well controlled, currently at 7 out of 10. Patient woud like an extra one time dose of pain med before the nurse changes the dressing later today. Patient reports no BM for the past 2 days. Agrees to increasing her bowel regimen. 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 No new complaints and no events reported overnight otherwise. Denies any dyspnea , palpitations, chest pain, n/v/c/d. Review of Systems Constitutional: Reports: see HPI, chills. Objective Current Medications: Current Medications Sig/Amrita Start time Last Medication Dose Route Stop Time Status Admin Amoxicillin/ 500 MG Q12 07/250 CAN Clavulanate Potassium PO 07/28 2300 Aspirin 81 MG DAILY 07/23 1000 AC 07/26 PO 0952 Atorvastatin Calcium 20 MG AT BEDTIME 07/22 2200 AC 07/25 PO 2148 Duloxetine HCl 30 MG QPM 07/22 2200 AC 07/25 PO 2148 Enoxaparin Sodium 40 MG DAILY 07/23 1000 AC 07/26 SC 0953 Gabapentin 100 MG Q8 PRN 07/22 1815 AC 07/25 PO 0903 Hydromorphone HCl 0.4 MG ONCE ONE 07/26 1200 DC 07/26 IV 07/26 1201 1143 Hydroxyurea 500 MG DAILY 07/22 1811 AC 07/26 PO 0952 Levothyroxine Sodium 0.075 MG DAILY AC 07/23 0700 AC 07/26 PO 0538 Metoprolol Tartrate 25 MG BID 07/22 2200 DC 07/26 PO 0952 Morphine Sulfate 2 MG Q6P PRN 07/22 1900 DC 07/26 IV 0906 Oxycodone/ 1 TAB Q6P PRN 07/26 1200 AC Acetaminophen PO Patient Medication 1 ED .STK-MED ONE 07/25 1400 DC Teaching ED 07/25 1401 Prednisone 20 MG DAILY 07/25 1816 DC PO 07/26 1001 Senna/Docusate Sodium 1 TAB BID PRN 07/25 0915 AC 07/26 PO 0953 Theophylline 200 MG AT BEDTIME 07/25 2200 CAN PO Tramadol HCl 50 MG Q6P PRN 07/22 1815 AC 07/25 PO 2241 Vancomycin HCl 1,000 MG DAILY 07/22 2230 DC 07/25 Dextrose/Water 250 ML IV 0903 Vital Signs & I&O Last 24 Hrs of Vitals and I&O: Vital Signs Date Time Temp Pulse Resp B/P Pulse O2 O2 Flow FiO2 Ox Delivery Rate 07/26 0952 87 106/58 07/26 0623 98.8 97 18 112/60 98 Nasal 2.0L Cannula 07/26 0000 Nasal 2.0L Cannula 07/25 2256 98.6 92 20 110/60 92 Nasal Cannula 07/25 2149 98.0 70 18 106/50 07/25 1600 Nasal 2.0L Cannula 07/25 1408 97.4 63 20 112/80 94 Nasal 2.0L Cannula Intake & Output 07/26 1600 07/26 0800 07/26 0000 Intake Total 120 100 Output Total 100 350 Balance 20 -250 Intake, Oral 120 100 Number 0 Bowel Movements Output, Urine 100 350 Patient 109 lb Weight Impression/Plan Impression/Plan Impression/Plan: Physical Exam General Appearance: Alert, Oriented X3, Cooperative, No Acute Distress Other Physical Findings: Skin BLEs wrapped with dressings, patient refusing undressing. HEENT Atraumatic, PERRLA, EOMI, Mucous Membr. moist/pink Neck Supple, No JVD, +2 Carotid Pulse wo Bruit, No LAD Cardiovascular Regular Rate, Normal S1, Normal S2, Systolic murmur (Grade II) at aortic Lungs Clear to Auscultation, Normal Air Movement Abdomen Normal Bowel Sounds, Soft, No Tenderness Neurological Normal Speech, Sensation Intact, Cranial Nerves 3-12 NL Extremities No Clubbing, No Cyanosis, No Edema, Limited due to dressings IMPRESSION Ms. Bauer is a 81 year old lady with a PMH significant for skin cancer (unknown type) in BLEs, PAD, chronic venous insufficeincy, HTN, HLD, CHF, thrombocytosis, Graves disease, hypothyroidism, brain tumor, depression, and benzo abuse, presenting with worsening bilateral lower extremity edema and pain secondary to nonhealing ulcers of BLE. 1. Lower extremity edema related to venous insufficiency with nonhealing ulcers. 2. Chronic venous insufficiency, status post venous closure procedures 3. Chronic pain syndrome 4. Nonobstructive peripheral arterial disease-the patient had bilateral lower extremity arterial angiography performed in December 2015 which showed no focal obstructive arterial disease which would require intervention. 5. Hyperlipidemia 6. Hypertension 7. Hypothyroidism RECOMMENDATION Continue by mouth Lasix or IV Lasix 40 mg daily Elevated the leg Continue current medications Continue to follow with cardiology and vascular surgery keep the leg elevated medications reviewed Discharge patient to longterm facility bed available
[2016-07-26 15:27] VITALS: BP 100/60
[2016-07-26 18:35] VITALS: BP 120/80
[2016-07-26 22:24] VITALS: BP 120/60
--- NOTE | 2016-07-27 05:57 | PN- Housestaff ---
Subjective Follow-up For: Nonhealing ulcers in BLEs Presumed cellulitis Subjective: Patient seen and examined at bedside. Resting comfortably in bed with no new complaints. Pain is well controlled, currently at 6 out of 10. No new complaints and no events reported overnight otherwise. Blood pressure in a normal range. Denies any dyspnea, palpitations, chest pain. Review of Systems Constitutional: Reports: see HPI. Objective Last 24 Hrs of Vital Signs/I&O Vital Signs Date Time Temp Pulse Resp B/P Pulse O2 O2 Flow FiO2 Ox Delivery Rate 07/27 0634 97.9 73 18 108/62 94 Room Air 07/26 2224 98.3 84 20 120/60 93 Room Air 07/26 1835 120/80 07/26 1527 97.7 79 18 100/60 92 07/26 0952 87 106/58 Intake & Output 07/27 1600 07/27 0800 07/27 0000 Intake Total 480 120 Output Total 950 900 Balance -470 -780 Intake, IV 0 Intake, Oral 480 120 Number 0 Bowel Movements Output, Urine 950 900 Patient 48.194 kg Weight Physical Exam General Appearance: Alert, Oriented X3, Cooperative Other Physical Findings: Skin BLEs wrapped with dressings, patient refusing undressing. HEENT Atraumatic, PERRLA, EOMI, Mucous Membr. moist/pink Neck Supple, No JVD, +2 Carotid Pulse wo Bruit, No LAD Cardiovascular Regular Rate, Normal S1, Normal S2, Systolic murmur (Grade II) at aortic Lungs Clear to Auscultation, Normal Air Movement Abdomen Normal Bowel Sounds, Soft, No Tenderness Neurological Normal Speech, Sensation Intact, Cranial Nerves 3-12 NL Extremities No Clubbing, No Cyanosis, No Edema, Limited due to dressings Current Medications: Current Medications Sig/Amrita Start time Last Medication Dose Route Stop Time Status Admin Aspirin 81 MG DAILY 07/23 999 AC 07/26 PO 0952 Atorvastatin Calcium 20 MG AT BEDTIME 07/22 2199 AC 07/26 PO 2052 Duloxetine HCl 30 MG QPM 07/22 2199 AC 07/26 PO 2052 Enoxaparin Sodium 40 MG DAILY 07/23 1000 AC 07/26 SC 0953 Furosemide 20 MG 7:30 AM, & 4:30 PM 07/27 0730 AC 07/27 PO 0626 Furosemide 20 MG ONCE ONE 07/26 1845 DC PO 07/26 1846 Furosemide 20 MG DAILY 07/26 1811 DC 07/26 PO 1830 Gabapentin 100 MG Q8 PRN 07/22 1815 AC 07/27 PO 0626 Hydromorphone HCl 0.4 MG ONCE ONE 07/26 1200 DC 07/26 IV 07/26 1201 1143 Hydroxyurea 500 MG DAILY 07/22 1811 AC 07/26 PO 0952 Levothyroxine Sodium 0.075 MG DAILY AC 07/23 0700 AC 07/27 PO 0626 Metoprolol Tartrate 25 MG BID 07/22 2200 DC 07/26 PO 0952 Morphine Sulfate 2 MG Q6P PRN 07/22 1900 DC 07/26 IV 0906 Oxycodone/ 1 TAB Q6P PRN 07/26 1200 AC 07/27 Acetaminophen PO 0200 Patient Medication 1 UNIT ONE NR 07/26 1915 TX Teaching ED 07/26 1930 Senna/Docusate Sodium 1 TAB BID PRN 07/25 0915 AC 07/26 PO 2053 Tramadol HCl 50 MG Q6P PRN 07/22 181 AC 07/27 PO 0630 Last 24 Hrs of Lab/Everardo Results Last 24 Hrs of Labs/Mics: Laboratory Tests 07/27/16 0634: Sodium Pending, Potassium Pending, Chloride Pending, Carbon Dioxide Pending, Anion Gap Pending, BUN Pending, Creatinine Pending, BUN/Creatinine Ratio Pending , Iron Pending, TIBC Pending, Ferritin Pending, Vitamin B12 Pending, CBC w Diff Pending, WBC Pending, RBC Pending, Hgb Pending, Hct Pending, MCV Pending, MCH Pending, RDW Pending, Plt Count Pending, MPV Pending, PUBS MCHC Pending 07/26/16 1005: Sodium Cancelled, Potassium Cancelled, Chloride Cancelled, Carbon Dioxide Cancelled, Anion Gap Cancelled, BUN Cancelled, Creatinine Cancelled, BUN/ Creatinine Ratio Cancelled Assessment/Plan Assessment: Ms. Bauer is a 81 year old lady with a PMH significant for skin cancer (unknown type) in BLEs, PAD, chronic venous insufficeincy, HTN, HLD, CHF, thrombocytosis, Graves disease, hypothyroidism, brain tumor, depression, and benzo abuse, presenting with worsening bilateral lower extremity edema and pain secondary to nonhealing ulcers of BLE. #Nonhealing ulcers of BLE: [facility]. Has had extensive venous and arterial testing per vascular surgery. Does not have significant PAD but has had venous disease which has been treated. Per vascular during last admission, patient's leg edema and ulceration was exacerbated by noncompliance with compression therapy and leg elevation. She has previously responded to treatment during hospitalization with improvement of her wounds. * Wound care consulted, follow recs * Continue leg elevation and compression from foot to knee. * Vascular consulted, follow recs * Continue local wound care with Adaptic, Aquacel and Kerlix and Kelton daily; avoid Xeroform as per vascular rec. * Adequate pain control with Morphine 2mg IV Q6P and Ultram 50 mg PO Q6P * May give 0.4-0.6mg IV Dilaudid one time dose before dressing change or for excrucaiting pain * Cont Lasix 20mg PO Q12 PO, hold if SBP < 100 * Cnc Mill And Lathe Operator (Dr. Biggs) consulted, follow recs # Sepsis most likely 2/2 cellulitis of the legs Patient noted to be febrile with leukocytosis on 07/22. She was started on Vancomycin and completed 4 days of it. Currently on Augmentin. Will complete 7 day course. * Cont Augentin 500mg PO BID to be finished on 07/28. * Vitals per protocol * Check CBC - WBC trending down # Anemia Patient's Hgb has been gradually trending down. * CBC daily, trend H/H - Hg improved to 8.8 today * Check iron studies, B12 * Check guaic stool test # Urinary incontinence Per daughter patient's urinary incontinence has worsened recently. It appears that her urine may have interfered with her leg ulcers. Urology consulted on 06/28. Dr. Mejía recommended a follow up outpatient. * Continue brewer for strict I/Os per 's rec #Depression: * Continue home med Cybalta 30mg PO qPM * Consider psych consider * Avoid benzodiazepines in the setting of history of benzodiazepine abuse. #HTN: Patient has been slighlty hypotensive. * Hold home med Lopressor 25mg PO BID * Diuretics as per above-mentioned plan #Thrombocytopenia * Continue home med hydroxyurea 500 mg PO QD #HLD * Continue home meds Lipitor 20mg PO qHS and aspirin 81 mg PO QD #Hypothyroidism: History of Grave's disease. * Continue home med levotyroxine 75 mcg PO QD Diet: Heart healthy DVT PPx: Lovenox 40 mg SQ QD CODE: FULL Problem List: 1. PAD (peripheral artery disease) 2. Lower extremity edema 3. History of thrombocytosis 4. Leg pain, bilateral 5. Full code status Pain Ratin Pain Location: BLEs Pain Goal: Pain 4 or less Pain Plan: Morphine Tramadol Tomorrow's Labs & Rationales: BEP to check lytes and renal fx
[2016-07-27 06:34] VITALS: BP 108/62
[2016-07-27 08:51] LABS: ABSOLUTE BASOPHIL COUNT 0 /CUMM (0.0-0.2); ABSOLUTE EOSINOPHIL COUNT 0.1 /CUMM (0.0-0.7); ABSOLUTE GRANULOCYTE CT 3.6 /CUMM (1.4-6.5); ABSOLUTE LYMPH COUNT 2.1 /CUMM (1.2-3.4); ABSOLUTE MONOCYTE COUNT 1.2 /CUMM (0.10-0.60); BASOPHIL % 0.7 % (0.0-2.0); EOSINOPHIL % 1.6 % (0-5); GRANULOCYTE % 50.6 % (42.2-75.2); HEMATOCRIT 27.6 % (37-47); MEAN CORPUSCULAR HGB CONC 31.9 G/DL (33.0-37.0); MEAN CORPUSCULAR VOLUME 100.2 FL (81.0-99.0); MEAN PLATELET VOLUME 6.9 FL (7.4-10.4); PLATELET COUNT 672 /CUMM (130-400); RBC DISTRIBUTION WIDTH 16.6 % (11.5-14.5); RED BLOOD CELL CT 2.76 /CUMM (4.20-5.40); WHITE BLOOD CELL COUNT 7.1 /CUMM (4.8-10.8)
--- NOTE | 2016-07-27 10:32 | PN- Pulmonary ---
Subjective HPI/Critical Care Issues: Patient seen and examined at bedside. Resting comfortably in bed with no new complaints. Pain is well controlled, No new complaints and no events reported overnight otherwise. Blood pressure in a normal range. Denies any dyspnea, palpitations, chest pain. Review of Systems Constitutional: Reports: see HPI. Objective Current Medications: Current Medications Sig/Amrita Start time Last Medication Dose Route Stop Time Status Admin Aspirin 81 MG DAILY 07/23 1000 AC 07/26 PO 0952 Atorvastatin Calcium 20 MG AT BEDTIME 07/22 2199 AC 07/26 PO 2052 Duloxetine HCl 30 MG QPM 07/22 2199 AC 07/26 PO 2052 Enoxaparin Sodium 40 MG DAILY 07/23 1000 AC 07/26 SC 0953 Furosemide 20 MG 7:30 AM, & 4:30 PM 07/27 0730 AC 07/27 PO 06 Furosemide 20 MG ONCE ONE 07/26 1845 DC PO 07/26 1846 Furosemide 20 MG DAILY 07/26 181 DC 07/26 PO 1830 Gabapentin 100 MG Q8 PRN 07/22 181 AC 07/27 PO 0626 Hydromorphone HCl 0.4 MG ONCE ONE 07/26 1200 DC 07/26 IV 07/26 1201 1143 Hydroxyurea 500 MG DAILY 07/22 181 AC 07/26 PO 0952 Levothyroxine Sodium 0.075 MG DAILY AC 07/23 0700 AC 07/27 PO 0626 Metoprolol Tartrate 25 MG BID 07/22 220 DC 07/26 PO 0952 Morphine Sulfate 2 MG Q6P PRN 07/22 1900 DC 07/26 IV 0906 Oxycodone/ 1 TAB Q6P PRN 07/26 1200 AC 07/27 Acetaminophen PO 0200 Patient Medication 1 UNIT ONE NR 07/26 1915 MA Teaching ED 07/26 1930 Senna/Docusate Sodium 1 TAB BID PRN 07/25 0915 AC 07/26 PO 205 Tramadol HCl 50 MG Q6P PRN 07/22 181 AC 07/27 PO 0630 Vital Signs & I&O Last 24 Hrs of Vitals and I&O: Vital Signs Date Time Temp Pulse Resp B/P Pulse O2 O2 Flow FiO2 Ox Delivery Rate 07/27 633 97.9 73 18 108/62 94 Room Air 07/26 2223 98.3 84 20 120/60 93 Room Air 07/26 1835 120/80 07/26 1527 97.7 79 18 100/60 92 Intake & Output 07/27 1600 07/27 0800 07/27 0000 Intake Total 480 120 Output Total 950 900 Balance -470 -780 Intake, IV 0 Intake, Oral 480 120 Number 0 Bowel Movements Output, Urine 950 900 Patient 106 lb Weight Laboratory Tests 07/27 07/26 0634 1005 Chemistry Sodium (137 - 145 mmol/L) 138 Cancelled Potassium (3.5 - 5.1 mmol/L) 5.2 H Cancelled Chloride (98 - 107 mmol/L) 92 L Cancelled Carbon Dioxide (22 - 30 mmol/L) 32 H Cancelled Anion Gap (5 - 16) 14 Cancelled BUN (7 - 17 mg/dL) 14 Cancelled Creatinine (0.5 - 1.0 mg/dL) 0.9 Cancelled Estimated GFR (>60 ml/min) 60 BUN/Creatinine Ratio (7 - 25 %) 15.6 Cancelled Iron (37 - 170 ug/dL) 39 TIBC (265 - 497 ug/dL) 303 Ferritin (11.1 - 264 ng/mL) 53.4 Vitamin B12 (239 - 931 pg/mL) 409 Hematology CBC w Diff NO MAN DIFF REQ WBC (4.8 - 10.8 /CUMM) 7.1 RBC (4.20 - 5.40 /CUMM) 2.76 L Hgb (12.0 - 16.0 G/DL) 8.8 L Hct (37 - 47 %) 27.6 L MCV (81.0 - 99.0 FL) 100.2 H MCH (27.0 - 31.0 PG) 32.0 H RDW (11.5 - 14.5 %) 16.6 H Plt Count (130 - 400 /CUMM) 672 H MPV (7.4 - 10.4 FL) 6.9 L Gran % (42.2 - 75.2 %) 50.6 Lymphocytes % (20.5 - 51.1 %) 30.1 Monocytes % (1.7 - 9.3 %) 17.0 H Eosinophils % (0 - 5 %) 1.6 Basophils % (0.0 - 2.0 %) 0.7 Absolute Granulocytes (1.4 - 6.5 /CUMM) 3.6 Absolute Lymphocytes (1.2 - 3.4 /CUMM) 2.1 Absolute Monocytes (0.10 - 0.60 /CUMM) 1.2 H Absolute Eosinophils (0.0 - 0.7 /CUMM) 0.1 Absolute Basophils (0.0 - 0.2 /CUMM) 0 PUBS MCHC (33.0 - 37.0 G/DL) 31.9 L 07/26 0610 Hematology CBC w Diff NO MAN DIFF REQ WBC (4.8 - 10.8 /CUMM) 7.6 RBC (4.20 - 5.40 /CUMM) 2.35 L Hgb (12.0 - 16.0 G/DL) 7.7 L Hct (37 - 47 %) 23.3 L MCV (81.0 - 99.0 FL) 99.1 H MCH (27.0 - 31.0 PG) 32.6 H RDW (11.5 - 14.5 %) 16.9 H Plt Count (130 - 400 /CUMM) 603 H MPV (7.4 - 10.4 FL) 6.9 L Gran % (42.2 - 75.2 %) 57.9 Lymphocytes % (20.5 - 51.1 %) 26.8 Monocytes % (1.7 - 9.3 %) 13.3 H Eosinophils % (0 - 5 %) 1.2 Basophils % (0.0 - 2.0 %) 0.8 Absolute Granulocytes (1.4 - 6.5 /CUMM) 4.4 Absolute Lymphocytes (1.2 - 3.4 /CUMM) 2.0 Absolute Monocytes (0.10 - 0.60 /CUMM) 1.0 H Absolute Eosinophils (0.0 - 0.7 /CUMM) 0.1 Absolute Basophils (0.0 - 0.2 /CUMM) 0.1 PUBS MCHC (33.0 - 37.0 G/DL) 32.9 L Impression/Plan Impression/Plan Impression/Plan: Physical Exam General Appearance: Alert, Oriented X3, Cooperative, No Acute Distress Other Physical Findings: Skin BLEs wrapped with dressings, patient refusing undressing. HEENT Atraumatic, PERRLA, EOMI, Mucous Membr. moist/pink Neck Supple, No JVD, +2 Carotid Pulse wo Bruit, No LAD Cardiovascular Regular Rate, Normal S1, Normal S2, Systolic murmur (Grade II) at aortic Lungs Clear to Auscultation, Normal Air Movement Abdomen Normal Bowel Sounds, Soft, No Tenderness Neurological Normal Speech, Sensation Intact, Cranial Nerves 3-12 NL Extremities No Clubbing, No Cyanosis, No Edema, Limited due to dressings IMPRESSION Ms. Bauer is a 81 year old lady with a PMH significant for skin cancer (unknown type) in BLEs, PAD, chronic venous insufficeincy, HTN, HLD, CHF, thrombocytosis, Graves disease, hypothyroidism, brain tumor, depression, and benzo abuse, presenting with worsening bilateral lower extremity edema and pain secondary to nonhealing ulcers of BLE. 1. Lower extremity edema related to venous insufficiency with nonhealing ulcers. 2. Chronic venous insufficiency, status post venous closure procedures 3. Chronic pain syndrome 4. Nonobstructive peripheral arterial disease-the patient had bilateral lower extremity arterial angiography performed in December 2015 which showed no focal obstructive arterial disease which would require intervention. 5. Hyperlipidemia 6. Hypertension 7. Hypothyroidism 8. Mild hyperkalemia today RECOMMENDATION Continue by mouth Lasix Recheck potassium this pm Elevated the leg Continue current medications Continue to follow with cardiology and vascular surgery keep the leg elevated medications reviewed Discharge patient to [facility] facility bed available if stable
[2016-07-27 14:14] VITALS: BP 100/52
[2016-07-27 22:40] VITALS: BP 112/60
[2016-07-28 05:41] VITALS: BP 120/60
--- NOTE | 2016-07-28 06:26 | PN- Housestaff ---
CUCO MALAGON,KARINE 07/28/16 0626: Subjective Follow-up For: Nonhealing ulcers in BLEs Subjective: Patient seen and examined at bedside. Resting comfortably in bed with no new complaints. Pain is well controlled, currently at 7 out of 10. She had a bowel movement yesteday. No new complaints and no events reported overnight. Blood pressure stable in a normal range. Denies any dyspnea, palpitations, chest pain. Review of Systems Constitutional: Reports: see HPI. Objective Last 24 Hrs of Vital Signs/I&O Vital Signs Date Time Temp Pulse Resp B/P Pulse O2 O2 Flow FiO2 Ox Delivery Rate 07/28 0541 98.4 77 20 120/60 96 Room Air 07/27 2240 97.9 80 19 112/60 91 Room Air 07/27 1414 97.9 87 18 100/52 92 Room Air Intake & Output 07/28 1600 07/28 0800 07/28 0000 Intake Total 250 200 Output Total 250 250 Balance 0 -50 Intake, Oral 250 200 Number 2 Bowel Movements Output, Urine 250 250 Patient 48.648 kg Weight Physical Exam General Appearance: Alert, Oriented X3, Cooperative, No Acute Distress Other Physical Findings: Skin BLEs wrapped with dressings, patient refusing undressing. HEENT Atraumatic, PERRLA, EOMI, Mucous Membr. moist/pink Neck Supple, No JVD, +2 Carotid Pulse wo Bruit, No LAD Cardiovascular Regular Rate, Normal S1, Normal S2, Systolic murmur (Grade II) at aortic Lungs Clear to Auscultation, Normal Air Movement Abdomen Normal Bowel Sounds, Soft, No Tenderness Neurological Normal Speech, Sensation Intact, Cranial Nerves 3-12 NL Extremities No Clubbing, No Cyanosis, No Edema, Limited due to dressings Current Medications: Current Medications Sig/Amrita Start time Last Medication Dose Route Stop Time Status Admin Aspirin 81 MG DAILY 07/23 1000 AC 07/27 PO 1038 Atorvastatin Calcium 20 MG AT BEDTIME 07/22 2199 AC 07/27 PO 204 Bisacodyl 10 MG DAILY PRN 07/27 1130 AC 07/27 OR 1751 Duloxetine HCl 30 MG QPM 07/22 2199 AC 07/27 PO 2045 Enoxaparin Sodium 40 MG DAILY 07/23 1000 AC 07/27 SC 1038 Furosemide 20 MG 7:30 AM, & 4:30 PM 07/27 0730 AC 07/28 PO 0618 Gabapentin 300 MG Q8 07/27 2200 AC 07/28 PO 0618 Gabapentin 100 MG Q8 07/27 1400 DC 07/27 PO 1413 Gabapentin 100 MG Q8 PRN 07/22 1815 DC 07/27 PO 07/27 1359 0626 Hydromorphone HCl 0.4 MG ONCE ONE 07/27 1130 CAN IV 07/27 1131 Hydroxyurea 500 MG DAILY 07/22 1811 AC 07/27 PO 1038 Levothyroxine Sodium 0.075 MG DAILY AC 07/23 0700 AC 07/28 PO 0618 Morphine Sulfate 10 MG ONCE PRN 07/27 1200 DC PO 07/27 2300 Oxycodone/ 1 TAB Q6P PRN 07/26 1200 AC 07/27 Acetaminophen PO 1751 Senna/Docusate Sodium 1 TAB BID 07/27 2200 AC 07/27 PO 2044 Senna/Docusate Sodium 1 TAB BID PRN 07/25 0915 DC 07/27 PO 07/27 2159 1038 Tramadol HCl 50 MG Q6P PRN 07/22 181 AC 07/27 PO 2121 Last 24 Hrs of Lab/Everardo Results Last 24 Hrs of Labs/Mics: Laboratory Tests 07/28/16 0641: Anion Gap 7, Estimated GFR > 60, BUN/Creatinine Ratio 20.0 07/27/16 1920: 07/27/16 1800: Potassium Cancelled Assessment/Plan Assessment: Ms. Bauer is a 81 year old lady with a PMH significant for skin cancer (unknown type) in BLEs, PAD, chronic venous insufficeincy, HTN, HLD, CHF, thrombocytosis, Graves disease, hypothyroidism, brain tumor, depression, and benzo abuse, presenting with worsening bilateral lower extremity edema and pain secondary to nonhealing ulcers of BLE. #Nonhealing ulcers of BLE: [facility]. Has had extensive venous and arterial testing per vascular surgery. Does not have significant PAD but has had venous disease which has been treated. Per vascular during last admission, patient's leg edema and ulceration was exacerbated by noncompliance with compression therapy and leg elevation. She has previously responded to treatment during hospitalization with improvement of her wounds. * Wound care consulted, follow recs * Continue leg elevation and compression from foot to knee. * Vascular consulted, follow recs * Continue local wound care with Adaptic, Aquacel and Kerlix and Kelton daily; avoid Xeroform as per vascular rec. * Adequate pain control with Morphine 2mg IV Q6P and Ultram 50 mg PO Q6P * May give 0.4-0.6mg IV Dilaudid one time dose before dressing change or for excrucaiting pain * Cont Lasix 20mg PO Q12 PO, hold if SBP < 100 * Nuclear Equipment Design Engineer (Dr. Biggs) consulted, follow recs # Sepsis most likely 2/2 cellulitis of the legs Patient noted to be febrile with leukocytosis on 07/22. She was started on Vancomycin and completed 4 days of it. Currently on Augmentin. Will complete 7 day course. * Cont Augentin 500mg PO BID to be finished on 07/28. * Vitals per protocol * Check CBC - WBC trending down # Anemia Patient's Hgb has been gradually trending down. * CBC daily, trend H/H - Hg improved to 8.8 today * Check iron studies, B12 * Check guaic stool test # Urinary incontinence Per daughter patient's urinary incontinence has worsened recently. It appears that her urine may have interfered with her leg ulcers. Urology consulted on 06/28. Dr. Mejía recommended a follow up outpatient. * Continue brewer for strict I/Os per 's rec #Depression: * Continue home med Cybalta 30mg PO qPM * Consider psych consider * Avoid benzodiazepines in the setting of history of benzodiazepine abuse. #HTN: Patient has been slighlty hypotensive. * Hold home med Lopressor 25mg PO BID * Diuretics as per above-mentioned plan #Thrombocytopenia * Continue home med hydroxyurea 500 mg PO QD #HLD * Continue home meds Lipitor 20mg PO qHS and aspirin 81 mg PO QD #Hypothyroidism: History of Grave's disease. * Continue home med levotyroxine 75 mcg PO QD Diet: Heart healthy DVT PPx: Lovenox 40 mg SQ QD CODE: FULL Problem List: 1. Intractable pain 2. Lower extremity edema 3. Contusion of back Pain Ratin Pain Location: BLEs Pain Goal: Pain 4 or less Pain Plan: Moderate pathway Tomorrow's Labs & Rationales: None - dischage SUNNY PRATT 07/29/16 1330: Attending MD Review Statement Attending Statement Attending Assessment/Plan: I am not the attending for this Patient. Please see Dr Franklin note for more details.
[2016-07-28] MEDS ORDERED: SENNA PLUS TAB1 EACH PO (06:40)
[2016-07-28] MEDS ORDERED: PERCOCET 5-3251 EACH PO (06:40)
--- NOTE | 2016-07-28 10:42 | PN- Att Addend ---
Attending Addendum Attending Brief Note Patient still laying in bed with elevated legs, edema slowly coming down color of the toes are improved the legs are still wrapped patient is going today to short-term rehabilitation, see discharge summary W 10 and CMR I will follow the patient at [facility]. 24 TOTALS 07/28 0000 07/27 0000 Intake Total 1280 740 Output Total 1600 1200 Balance -320 -460 Intake, IV 0 0 Intake, Oral 1280 740 Number 2 0 Bowel Movements Output, Urine 1600 1200 Patient 106 lb 109 lb Weight Current Medications Sig/Amrita Start time Last Medication Dose Route Stop Time Status Admin Aspirin 81 MG DAILY 07/23 1000 AC 07/27 PO 1038 Atorvastatin Calcium 20 MG AT BEDTIME 07/22 2200 AC 07/27 PO 2044 Bisacodyl 10 MG DAILY PRN 07/27 1130 AC 07/27 PA 1751 Duloxetine HCl 30 MG QPM 07/22 2200 AC 07/27 PO 2045 Enoxaparin Sodium 40 MG DAILY 07/23 1000 AC 07/27 SC 1038 Furosemide 20 MG 7:30 AM, & 4:30 PM 07/27 0730 AC 07/28 PO 0618 Gabapentin 300 MG Q8 07/27 2200 AC 07/28 PO 0618 Gabapentin 100 MG Q8 07/27 1400 DC 07/27 PO 1413 Gabapentin 100 MG Q8 PRN 07/22 1815 DC 07/27 PO 07/27 1359 0626 Hydromorphone HCl 0.4 MG ONCE ONE 07/27 1130 CAN IV 07/27 1131 Hydroxyurea 500 MG DAILY 07/22 1811 AC 07/27 PO 1038 Levothyroxine Sodium 0.075 MG DAILY AC 07/23 0700 AC 07/28 PO 0618 Morphine Sulfate 10 MG ONCE PRN 07/27 1200 DC PO 07/27 2300 Oxycodone/ 1 TAB Q6P PRN 07/26 1200 AC 07/27 Acetaminophen PO 1751 Senna/Docusate Sodium 1 TAB BID 07/27 2200 AC 07/27 PO 2044 Senna/Docusate Sodium 1 TAB BID PRN 07/25 0915 DC 07/27 PO 07/27 2159 1038 Tramadol HCl 50 MG Q6P PRN 07/22 1815 AC 07/27 PO 2121 Vital Signs Date Time Temp Pulse Resp B/P Pulse O2 O2 Flow FiO2 Ox Delivery Rate 07/28 0541 98.4 77 20 120/60 96 Room Air 07/27 2240 97.9 80 19 112/60 91 Room Air 07/27 1414 97.9 87 18 100/52 92 Room Air
[2016-07-28 12:27] VITALS: BP 120/60
== END 2016-07-28 12:54 | DRG 300 ==
LOC: ENRESERVDT → ENRESERVTM → ERH 14:23 → 2NA 16:17 → ERHI 16:17 → 2NA 07-23 14:39
PROVIDERS: Emergency Medicine; Internal Medicine; Student in an Organized Health Care Education/Training Program; ADMIT Internal Medicine
DX: I87.2 Venous insufficiency (chronic) (peripheral) (principal); L97.829 Non-pressure chronic ulcer of other part of left lower leg with unspecified severity; L97.819 Non-pressure chronic ulcer of other part of right lower leg with unspecified severity; I50.22 Chronic systolic (congestive) heart failure; D69.6 Thrombocytopenia, unspecified; L03.115 Cellulitis of right lower limb; I11.0 Hypertensive heart disease with heart failure; L03.116 Cellulitis of left lower limb; G62.9 Polyneuropathy, unspecified; D47.3 Essential (hemorrhagic) thrombocythemia; E05.00 Thyrotoxicosis with diffuse goiter without thyrotoxic crisis or storm; E03.9 Hypothyroidism, unspecified; Z85.828 Personal history of other malignant neoplasm of skin; E78.5 Hyperlipidemia, unspecified; F32.9 Major depressive disorder, single episode, unspecified; F41.9 Anxiety disorder, unspecified; I35.0 Nonrheumatic aortic (valve) stenosis; R32 Unspecified urinary incontinence; D64.9 Anemia, unspecified; G89.4 Chronic pain syndrome; E53.8 Deficiency of other specified B group vitamins; I73.9 Peripheral vascular disease, unspecified; E87.5 Hyperkalemia; Z85.3 Personal history of malignant neoplasm of breast
CPT/HCPCS: 2NASP; ERO; 36415; 81003; 82436; 87040; 87086; 87088; 87147; 93005; 93010; 96374; 96375; 97162-GP; 97530-GO; A4649; G0463; J0131; J1650; J1940; J2405; J3370; J3490; J7060